=== PATIENT | male | born 1990 | race Caucasian/White ===

== ENCOUNTER 2016-08-10 00:28 | Inpatient (IN) | payer SELFPAY ==
[2016-08-10 01:20] LABS: Hematocrit 46 % (42-52); Hemoglobin 15.6 g/dl (14.0-18.0); Mean Corpuscular HGB Conc 34 g/dl (31-36); Mean Corpuscular Hemoglobin 30 pg (27-31); Mean Corpuscular Volume 90 fL (80-94); Mean Platelet Volume 8 um3 (7.4-10.4); Red Blood Count 5.15 10^6/ul (4.0-5.4); Red Cell Distribution Width 14 % (10.5-15); White Blood Count 6.6 10^3/ul (3.5-10.8)
--- NOTE | 2016-08-10 01:21 | ED ---
Von Hermos[place] Benjamin, scribed for Bacilio Fung MD on 08/10/16 at 0106 . Psychiatric Complaint - HPI Summary HPI Summary: 26yo male c/o SI tonight. Pt reports he had plans to jump off the bridge tonight after some problems with his girlfriend. Pt had SI multiple times previously and states that he has been seen for SI multiple times. Denies HI. - History Of Current Complaint Chief Complaint: EDMentalHealth Time Seen by Provider: 08/10/16 00:36 Hx Obtained From: Patient Onset/Duration: Sudden Onset, Lasting Hours, Still Present Timing: Constant Severity Initially: Mild Severity Currently: Mild Character: Depressed Aggravating Factor(s): Recent Stress Alleviating Factor(s): Nothing Associated Signs And Symptoms: Positive: Negative - Allergies/Home Medications Allergies/Adverse Reactions: Allergies Allergy/AdvReac Type Severity Reaction Status Date / Time No Known Allergies Allergy Verified 08/10/16 00:39 PMH/Surg Hx/FS Hx/Imm Hx Psychiatric History: Reports: Hx Suicide Attempt Infectious Disease History: No Infectious Disease History: Denies: Traveled Outside the [place] in Last 30 Days - Family History Known Family History: Negative: Cardiac Disease, Hypertension - Social History Lives: Alone Alcohol Use: None Substance Use Type: Reports: None Smoking Status (MU): Light Every Day Tobacco Smoker Review of Systems Constitutional: Negative Eyes: Negative ENT: Negative Cardiovascular: Negative Respiratory: Negative Gastrointestinal: Negative Genitourinary: Negative Musculoskeletal: Negative Skin: Negative Neurological: Negative Positive: Depressed, Other - SI All Other Systems Reviewed And Are Negative: Yes Physical Exam Triage Information Reviewed: Yes Vital Signs On Initial Exam: Initial Vitals Temp Pulse Resp BP Pulse Ox 99.6 F 82 18 138/89 98 08/10/16 00:33 08/10/16 00:33 08/10/16 00:33 08/10/16 00:33 08/10/16 00:33 Vital Signs Reviewed: Yes Appearance: Positive: Well-Appearing, No Pain Distress Skin: Positive: Warm Head/Face: Positive: Normal Head/Face Inspection Eyes: Positive: YOLANDE ENT: Positive: Hearing grossly normal Neck: Positive: Supple Respiratory/Lung Sounds: Positive: Breath Sounds Present Cardiovascular: Positive: RRR Abdomen Description: Positive: Nontender, Soft Bowel Sounds: Positive: Present Musculoskeletal: Positive: Strength/ROM Intact Neurological: Positive: Sensory/Motor Intact, Alert, Oriented to Person Place, Time Psychiatric: Positive: Affect/Mood Appropriate Diagnostics - Vital Signs Vital Signs Temp Pulse Resp BP Pulse Ox 08/10/16 00:33 99.6 F 82 18 138/89 98 - Laboratory Lab Results: Lab Results 08/10/16 Range/Units 01:11 WBC 6.6 (3.5-10.8) 10^3/ul RBC 5.15 (4.0-5.4) 10^6/ul Hgb 15.6 (14.0-18.0) g/dl Hct 46 (42-52) % MCV 90 (80-94) fL MCH 30 (27-31) pg MCHC 34 (31-36) g/dl RDW 14 (10.5-15) % Plt Count 139 L (150-450) 10^3/ul MPV 8 (7.4-10.4) um3 Neut % (Auto) 77.5 (38-83) % Lymph % (Auto) 15.6 L (25-47) % Meagher % (Auto) 6.0 (1-9) % Eos % (Auto) 0.4 (0-6) % Baso % (Auto) 0.5 (0-2) % Absolute Neuts (auto) 5.1 (1.5-7.7) 10^3/ul Absolute Lymphs (auto) 1.0 (1.0-4.8) 10^3/ul Absolute Monos (auto) 0.4 (0-0.8) 10^3/ul Absolute Eos (auto) 0 (0-0.6) 10^3/ul Absolute Basos (auto) 0 (0-0.2) 10^3/ul Absolute Nucleated RBC 0.01 10^3/ul Nucleated RBC % 0.1 Result Diagrams: 08/10/16 01:11 08/10/16 01:11 Lab Statement: Any lab studies that have been ordered have been reviewed, and results considered in the medical decision making process. Course/Dx - Differential Dx/Clinical Impression Provider Diagnosis: Suicidal ideations - Physician Notifications Instructed by Provider To: Admit As Inpatient Discharge - Discharge Plan Condition: Fair Disposition: ADMITTED TO [facility] documentation as recorded by the Von bautista Benjamin accurately reflects the service I personally performed and the decisions made by , Bacilio Fung MD.
[2016-08-10 01:28] LABS: Urine Bacteria Absent (Absent); Urine Bilirubin Negative (Negative); Urine Glucose Negative (Negative); Urine Nitrite Negative (Negative)
[2016-08-10 01:37] LABS: Benzodiazepine Urine Screen None Detected (None Detect)
[2016-08-10 01:38] LABS: ALT 34 U/L (7-52); AST 28 U/L (13-39); Acetaminophen < 15 mcg/mL; Albumin 4.7 g/dL (3.2-5.2); Alcohol < 10 mg/dL (<10); Alkaline Phosphatase 80 U/L (34-104); Anion Gap 6 mmol/L (2-11); BUN/Creatinine Ratio 11.6 (8-20); Blood Urea Nitrogen 11 mg/dL (6-24); CO2 Carbon Dioxide 29 mmol/L (22-32); Calcium 9.6 mg/dL (8.6-10.3); Chloride 102 mmol/L (101-111); EGFR African American 122.3 (>60); EGFR Non-African American 95.1 (>60); Globulin 2.6 g/dL (2-4); Glucose 105 mg/dL (70-100); Potassium 4.1 mmol/L (3.5-5.0); Salicylate < 2.50 mg/dL (<30); Sodium 137 mmol/L (133-145); Total Protein 7.3 g/dL (6.4-8.9)
[2016-08-10 01:48] LABS: TSH (Thyroid Stimulating Horm) 1.54 mcIU/mL (0.34-5.60)
[2016-08-10] MEDS ORDERED: Mouth Piece, Nicotine* 1 EACH CARTRIDGE INH SCH (05:35)
[2016-08-10] MEDS ORDERED: Al Hydrox/Mg Hydrox/Simet LIQ* 30 ML UDC PO PRN (05:35)
[2016-08-10] MEDS ORDERED: Nicotine Inhaler* 10 MG AMP INH PRN (05:35)
[2016-08-10] MEDS ORDERED: Nicotine GUM* 2 MG PO PRN (05:35)
[2016-08-10] MEDS: Acetaminophen TAB* 325 MG PO PRN (05:45)
[2016-08-10] MEDS: Vitamin THERAPEUTIC TAB PO SCH (08:58)
[2016-08-10] MEDS: Sertraline* 50 MG TAB PO SCH (09:26)
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
[2016-08-10] MEDS: Divalproex ER TAB(*) 500 MG PO SCH (20:08)
[2016-08-11] MEDS: Acetaminophen TAB* 325 MG PO PRN ×4 (06:06→23:30)
[2016-08-11] MEDS: Vitamin THERAPEUTIC TAB PO SCH (08:23)
[2016-08-11] MEDS: Sertraline* 50 MG TAB PO SCH (08:23)
--- NOTE | 2016-08-11 10:18 | PN ---
Subjective - Subjective Service Type: 95008 Hosp care 15 min low complexity Subjective: Michele agrees he feels a little better, but affirms he still needs to be in the hospital and still has some levels of "thoughts" (he refers to suicidal thoughts.) He denied problems restarting medication. I followed up his comments to nursing about elbow pain (he said it's mild, associated with a deformity pursuant to trauma and surgery many years ago). He is at a loss as to where to go from here, magan's mom's residence is not an option. He was surprised to hear that shelters are places where sometimes there are some tough characters. Objective - Appearance Appearance: Thin Framed Hygiene: Normal Grooming: Well Kept - Behavior Psychomotor Activities: Normal - Attitude and Relatedness Attitude and Relatedness: Superficially Cooperative Eye Contact: Good - Speech Quality: Unpressured Latencies: Normal Quantity: Terse - Mood Patient's Decription of Mood: "Okay" - Affect Observed Affect: Non-labile Affect Consistent with: Dysphoria - mild - Thought Process Patient's Thought Process: Coherent, Goal Directed, Impoverished Thought Content: No Passive Wish, No Suicidal Planning, No Homicidal Ideation, No Paranoid Ideation - Sensorium Experiencing Hallucinations: No, Sensorium is Clear - Level of Consciousness Level of Consciousness: Alert - Impulse Control Impulse Control: Intact - Insight and Judgement Insight and Judgement: Poor Assessment - Assessment Merits Inpatient Hospitalization: For Stabilization, To Initiate Treatment, For Ongoing Evaluation, Consolidate Improvements, For Discharge Planning Inpatient DSM-IV Dx: Mood disorder, not otherwise specified; learning disorder, rule out intellectual disability. Clinical Impression: 26-year-old male with a history of learning disorder, ADHD diagnosis, minor aggression, periodic suicidal ideation, possible intellectual deficits, and consideration for bipolar 2 disorder. He presented with symptoms of depression and suicidal ideation in the setting of displacement, homelessness, and interpersonal conflict with the background of his stopping his psychiatric medications 2 months ago (and saying that he felt better when he was on them). Stabilizing here. Safe on checks, free of active suicidal ideation (still has some level of suicidal rumination). Symptoms are overtly mild, pt. may have some secondary gain with hospital care due to homelessness. Medication management restarted Zoloft and Depakote. Plan - Plan Treatment Plan: Name: RAD CEJA Birthdate: 1990 [id number] Continued Medication Management: Start Medication Medications: Current Medications Acetaminophen (Tylenol Tab*) 650 mg PO Q4H PRN PRN Reason: PAIN or TEMP > 101 F Last Admin: 08/11/16 06:06 Dose: 650 mg Al Hydrox/Mg Hydrox/Simethicone (Maalox Plus*) 30 ml PO Q4H PRN PRN Reason: INDIGESTION Device (Nicotine Mouth Piece*) 1 each INH .[facility] Divalproex Sodium (Depakote Er Tab(*)) 500 mg PO BEDTIME [facility] Last Admin: 08/10/16 20:08 Dose: 500 mg Multivitamins (Theragran Tab*) 1 tab PO DAILY [facility] Last Admin: 08/11/16 08:23 Dose: 1 tab Nicotine (Nicotine Inhaler*) 10 mg INH Q2H PRN PRN Reason: CRAVING Nicotine Polacrilex (Nicotine Gum*) 2 mg PO Q2H PRN PRN Reason: CRAVING Sertraline HCl (Zoloft*) 50 mg PO DAILY [facility] Last Admin: 08/11/16 08:23 Dose: 50 mg - Discharge Plan Discharge Plan: Outpatient Follow Up
[2016-08-11] MEDS: Divalproex ER TAB(*) 500 MG PO SCH (20:11)
[2016-08-12] MEDS: Vitamin THERAPEUTIC TAB PO SCH (07:44)
[2016-08-12] MEDS: Acetaminophen TAB* 325 MG PO PRN ×2 (07:44→16:57)
[2016-08-12] MEDS: Sertraline* 50 MG TAB PO SCH (07:44)
--- NOTE | 2016-08-12 10:47 | PN ---
Subjective - Subjective Service Type: 57356 Hosp care 15 min low complexity Subjective: Michele says being on the unit is helping. He reports experience of "seeing a shadow" from time to time, and said it started after grandparent's . I normalized it for him and reassured him it is not suggestive of a major mental health problem. He was content with his regimen, asked for Ibuprofen for arm pain, and consented after I reviewed its profile and risks. Objective - Appearance Appearance: Healthy Appearing Hygiene: Normal Grooming: Well Kept - Behavior Psychomotor Activities: Normal - Attitude and Relatedness Attitude and Relatedness: Superficially Cooperative Eye Contact: Good - Speech Quality: Unpressured Latencies: Normal Quantity: Terse - Mood Patient's Decription of Mood: "Okay" - Affect Observed Affect: Non-labile Affect Consistent with: Euthymia - Thought Process Patient's Thought Process: Coherent, Goal Directed, Impoverished Thought Content: No Passive Wish, No Suicidal Planning, No Homicidal Ideation, No Paranoid Ideation - Sensorium Experiencing Hallucinations: No, Sensorium is Clear - Level of Consciousness Level of Consciousness: Alert - Impulse Control Impulse Control: Intact - Insight and Judgement Insight and Judgement: Fair Assessment - Assessment Merits Inpatient Hospitalization: To Initiate Treatment, For Ongoing Evaluation , Consolidate Improvements, For Discharge Planning, Pending Safe DC Plan Inpatient DSM-IV Dx: Mood disorder, not otherwise specified; learning disorder, rule out intellectual disability. Clinical Impression: 26-year-old male with a history of learning disorder, ADHD diagnosis, minor aggression, periodic suicidal ideation, possible intellectual deficits, and consideration for bipolar 2 disorder. He presented with symptoms of depression and suicidal ideation in the setting of displacement, homelessness, and interpersonal conflict with the background of his stopping his psychiatric medications 2 months ago (and saying that he felt better when he was on them). Stable in this setting. Aydin is safe on checks, free of active suicidal ideation (still has some level of suicidal rumination). Symptoms are overtly mild, he tends to emphasize them in contact with staff, but appears at ease and comfortable in non-clinical interactions. He may have some secondary gain with hospital care due to homelessness. Medication management restarted Zoloft and Depakote. Plan - Plan Treatment Plan: Name: AYDIN CEJA Birthdate: 1990 [id number] Continued Medication Management: Start Medication Medications: Current Medications Acetaminophen (Tylenol Tab*) 650 mg PO Q4H PRN PRN Reason: PAIN or TEMP > 101 F Last Admin: 08/12/16 07:44 Dose: 650 mg Al Hydrox/Mg Hydrox/Simethicone (Maalox Plus*) 30 ml PO Q4H PRN PRN Reason: INDIGESTION Device (Nicotine Mouth Piece*) 1 each INH .[facility] Last Admin: 08/11/16 19:11 Dose: 1 each Divalproex Sodium (Depakote Er Tab(*)) 500 mg PO BEDTIME [facility] Last Admin: 08/11/16 20:11 Dose: 500 mg Multivitamins (Theragran Tab*) 1 tab PO DAILY [facility] Last Admin: 08/12/16 07:44 Dose: 1 tab Nicotine (Nicotine Inhaler*) 10 mg INH Q2H PRN PRN Reason: CRAVING Nicotine Polacrilex (Nicotine Gum*) 2 mg PO Q2H PRN PRN Reason: CRAVING Sertraline HCl (Zoloft*) 50 mg PO DAILY [facility] Last Admin: 08/12/16 07:44 Dose: 50 mg - Discharge Plan Discharge Plan: Outpatient Follow Up
[2016-08-12] MEDS: Ibuprofen TAB* 400 MG PO PRN ×2 (13:03→21:40)
[2016-08-12] MEDS: Divalproex ER TAB(*) 500 MG PO SCH (20:17)
[2016-08-13] MEDS: Vitamin THERAPEUTIC TAB PO SCH (08:28)
[2016-08-13] MEDS: Sertraline* 50 MG TAB PO SCH (08:28)
[2016-08-13] MEDS: Ibuprofen TAB* 400 MG PO PRN (10:19)
--- NOTE | 2016-08-13 13:38 | PN ---
Subjective - Subjective Subjective: Today, Aydin reports right ear pain. He stated that in the past he had perforated his ear drug and has required antibiotic treatment for same. Attempted otoscopic examination, however, otoscope on unit was non-functional. Will request hospitalist consult for evaluation of ear pain. Aydin reports good sleep and fair appetite. Denies any improvement in mood, does admit to suicidal ideation which "comes and goes" but is future oriented. Objective - Appearance Dysmorphic Features: No Hygiene: Normal Grooming: Well Kept - Behavior Psychomotor Activities: Normal Exhibits Abnormal Movement: No - Attitude and Relatedness Attitude and Relatedness: Cooperative Eye Contact: Good - Speech Quality: Unpressured Latencies: Normal Quantity: Appropriate - Mood Patient's Decription of Mood: depressed - Affect Observed Affect: Depressed Affect Consistent with: Dysphoria - Thought Process Patient's Thought Process: Coherent Thought Content: Yes Passive Wish, No Suicidal Planning - denies, No Homicidal Ideation, No Paranoid Ideation - Sensorium Experiencing Hallucinations: No, Sensorium is Clear - Level of Consciousness Level of Consciousness: Alert Orientation: Yes Intact - Impulse Control Impulse Control: Intact - Insight and Judgement Insight and Judgement: Fair - Group Participation Particating in Group Activities: Yes Assessment - Assessment Inpatient DSM-IV Dx: Mood disorder, not otherwise specified; learning disorder, rule out intellectual disability. Clinical Impression: 26-year-old male with a history of learning disorder, ADHD diagnosis, minor aggression, periodic suicidal ideation, possible intellectual deficits, and consideration for bipolar 2 disorder. He presented with symptoms of depression and passive fleeting suicidal ideation. He remains on safety checks, but still has SI which "comes and goes." No new issues Plan - Plan Treatment Plan: Name: AYDIN CEJA Birthdate: 1990 [id number] Medications: Current Medications Acetaminophen (Tylenol Tab*) 650 mg PO Q4H PRN PRN Reason: PAIN or TEMP > 101 F Last Admin: 08/12/16 16:57 Dose: 650 mg Al Hydrox/Mg Hydrox/Simethicone (Maalox Plus*) 30 ml PO Q4H PRN PRN Reason: INDIGESTION Device (Nicotine Mouth Piece*) 1 each INH .[facility] Last Admin: 08/11/16 19:11 Dose: 1 each Divalproex Sodium (Depakote Er Tab(*)) 500 mg PO BEDTIME [facility] Last Admin: 08/12/16 20:17 Dose: 500 mg Ibuprofen (Motrin Tab*) 400 mg PO Q6H PRN PRN Reason: PAIN Last Admin: 08/13/16 10:19 Dose: 400 mg Multivitamins (Theragran Tab*) 1 tab PO DAILY [facility] Last Admin: 08/13/16 08:28 Dose: 1 tab Nicotine (Nicotine Inhaler*) 10 mg INH Q2H PRN PRN Reason: CRAVING Nicotine Polacrilex (Nicotine Gum*) 2 mg PO Q2H PRN PRN Reason: CRAVING Sertraline HCl (Zoloft*) 50 mg PO DAILY [facility] Last Admin: 08/13/16 08:28 Dose: 50 mg - Discharge Plan Additional Comments: Will consult hospitalist due to c/o right ear pain.
[2016-08-13] MEDS: Acetaminophen TAB* 325 MG PO PRN ×3 (13:43→23:25)
[2016-08-13] MEDS: Amoxicillin/Clavulanate TAB* 875 MG PO SCH ×2 (15:07→20:41)
--- NOTE | 2016-08-13 15:29 | CONS ---
CONSULTATION REPORT: DATE OF CONSULT: 08/13/16 PRIMARY CARE PROVIDER: None. ATTENDING PHYSICIAN WHILE IN THE HOSPITAL: Dr. Meaghan Penny (report being dictated by Gregory Chanel NP). REASON FOR MEDICAL CONSULTATION: Ear pain, right ear. REQUESTING PROVIDER FOR CONSULTATION: Chevy Sevilla NP. HISTORY OF PRESENT ILLNESS: I refer you to Dr. Ralph's H and P dictated on the for further details. In short, Mr. Yu is a 26-year-old male patient. He tells me he carries a history of depression, in addition to this also a history of bipolar disorder. He says that he also has a history of ADHD. He has had 2 prior psych hospitalizations for aggression and suicidal ideation. He says that he came in to the emergency department after he was expressing suicidal ideation to the police as there was stress over interpersonal conflicts and homelessness. While here, the patient reported that he was having some right ear pain and to me he states that he has been having this ear pain on the right side off and on for 6 months, but it has been worsening over the last couple days. He says that he has had some pain underneath his right jaw in the submandibular area, but no fevers or chills. He says it feels like there is discharge coming out of his ear. He does state that he has had a perforated eardrum to this ear in the past that required antibiotics previously and pain control. He expressed these concerns to Chevy Sevilla NP, in Psych and we were asked to come evaluate. He denied any fevers or chills. There is no chest pain or shortness of breath. He has not had any cough. He denies having any pain in any of his teeth, but there was concern because of the ear and we were asked to evaluate for consult. PAST MEDICAL HISTORY: Significant for: 1. Depression. 2. ADHD. SURGICAL HISTORY: 1. He has had an appendectomy. 2. He has had right upper extremity surgery. CURRENT MEDICATIONS: Include: 1. Tylenol 650 mg p.o. every 4 hours as needed. 2. Maalox 30 cc every 4 hours as needed. 3. Nicotine inhaler and nicotine gum. The inhaler is 10 mg inhaled every 2 hours as needed. The gum is 2 mg p.o. every 2 hours as needed. 4. Depakote 500 mg at bedtime. 5. Multivitamin 1 tablet daily. 6. Motrin 800 mg p.o. every 8 hours as needed. 7. Zoloft 50 mg daily. ALLERGIES TO MEDICATIONS: Include no known drug allergies. FAMILY HISTORY: Reviewed and noncontributory. SOCIAL HISTORY: Occasionally drinks alcohol. He was a pack a day smoker. He does not use any recreational drugs. He does not appoint a surrogate decision maker. REVIEW OF SYSTEMS: There is no documented fever. He denied having any significant weight change. There was no double vision. He denies having any no ear discharge currently, but he says he has a sensation like there is ear discharge. He denies having any nausea or vomiting. No dysuria. No frequency. Denied having any seizure. No loss of consciousness. No pruritus and no skin ulcerations. Review of 14 systems completed, all others negative. PHYSICAL EXAM: Reveals vital signs, blood pressure of 114/83, pulse 83, respirations 16, O2 sat 99%, and temperature 98.5. Generally, at this time, Mr. Yu is a 26-year-old male patient. He is sitting in the kitchen on the psychiatric unit. He does not appear to be in any acute distress. HEENT: Head is atraumatic and normocephalic. Eyes: EOMs are intact. Sclerae were anicteric and not pale. Throat: Oral mucosa appeared to be dry. No oropharyngeal erythema. On the right ear on exam, he had a tympanic membrane that did appear to be, particularly around the membrane, appeared to be erythematous. He did have a healing scar in the middle of the tympanic membrane as well as the canal itself there did not appear to be any erythema. He did have tenderness at the tragus and he had tenderness along the submandibular space and he had some adenopathy there as well. The left side, the TM appear to be grayish color. There is no erythema noted at this point and he had no lymphadenopathy on that side. Neck: Supple. Heart: Sounds S1, S2. Regular rate and rhythm. No murmurs, rubs, or gallops. Lungs: Clear to auscultation bilaterally. No wheezes, rales, or rhonchi. Abdomen was soft, flat , nontender. Extremities: No peripheral edema. Neurologically, he is awake, alert, and oriented x3. His skin was grossly intact. DIAGNOSTIC STUDIES/LAB DATA: Done on admission reveal WBC 6.6, RBC of 5.15, hemoglobin 15.6, hematocrit 46, platelet count 139. Sodium was 137, potassium 4.1, chloride 102, bicarb 29, BUN 11, creatinine 0.95, glucose of 105, calcium 9.6. Total bili 0.5, AST 28, ALT 34, alk phos 80. His albumin was 4.7. TSH was normal. Urine showed 1+ blood. He had a negative Utox. Old medical records were reviewed. ASSESSMENT AND PLAN: Mr. Yu is a 26-year-old male patient coming to the [facility] with complaints of suicidal ideation. Whilst there in the [facility], was complaining of right ear pain. We were asked to evaluate in consult. Recommendations at this point are: 1. Suicidal ideation: Defer the management to Psychiatry. 2. Right ear pain: I suspect he does have some otitis media here and I am going to go ahead and put him on Augmentin for a 7-day course. I would control pain with p.r.n. Motrin and Tylenol and will follow up in 24 to 48 hours to make sure that he is improving appropriately. 3. Bipolar disorder: I will defer to the primary team. 4. Depression: Defer to the primary team. 5. DVT prophylaxis: He is low risk. Encourage ambulation. 6. Fluids, electrolytes, and nutrition: He can have a regular diet. 7. Code status: Full code. TIME SPENT: Time spent on the consult was 60 minutes; greater than half the time was spent [id number] with the patient obtaining my history and physical, other half the time spent going over the plan of care with the patient and implementing plan of care. I did discuss the plan of care with my attending, Dr. Penny; she is in agreement. GREGORY CHANEL NP CC: Chevy Sevilla NP [id number]/[facility] #: [id number] MTDD
[2016-08-13] MEDS: Ibuprofen TAB* 800 MG PO PRN (17:32)
[2016-08-13] MEDS: Divalproex ER TAB(*) 500 MG PO SCH (20:41)
[2016-08-13] MEDS: diPHENhydraMINE PO* 50 MG PO PRN (22:19)
[2016-08-14] MEDS: Amoxicillin/Clavulanate TAB* 875 MG PO SCH ×2 (08:14→20:24)
[2016-08-14] MEDS: Sertraline* 50 MG TAB PO SCH (08:14)
[2016-08-14] MEDS: Vitamin THERAPEUTIC TAB PO SCH (08:14)
[2016-08-14] MEDS: Ibuprofen TAB* 800 MG PO PRN ×2 (08:14→20:25)
[2016-08-14] MEDS: Acetaminophen TAB* 325 MG PO PRN ×2 (10:51→16:58)
--- NOTE | 2016-08-14 15:31 | PN ---
Progress Note - Progress Note Note: I followed up on Aydin's complaint of R ear pain today. He states the pain is unchanged despite being started on Abx yesterday. He denies any drainage from the ear. He is worried about developing hearing loss because of the potential infection. Will add decongestant to see if that helps with the pain. I did not evaluate his TM today as there is likely little change in <24hr of Abx therapy. Will follow up tomorrow.
[2016-08-14] MEDS: Pseudoephedrine HCL ER TAB* 120 MG PO SCH (17:37)
[2016-08-14] MEDS: Divalproex ER TAB(*) 500 MG PO SCH (20:24)
[2016-08-15] MEDS: Vitamin THERAPEUTIC TAB PO SCH (07:42)
[2016-08-15] MEDS: Pseudoephedrine HCL ER TAB* 120 MG PO SCH ×2 (07:42→17:09)
[2016-08-15] MEDS: Amoxicillin/Clavulanate TAB* 875 MG PO SCH ×2 (07:42→21:01)
[2016-08-15] MEDS: Sertraline* 50 MG TAB PO SCH (07:42)
[2016-08-15] MEDS: Ibuprofen TAB* 800 MG PO PRN ×2 (10:04→19:15)
--- NOTE | 2016-08-15 12:03 | PN ---
Subjective - Subjective Service Type: 09870 Hosp care 15 min low complexity Subjective: Aydin continues to complain of ear pain, depressed mood and suicidal thoughts. He says he is thinking of by self-strangulation. He says he will tell us if he has intent to act on this plan here. He denies any psychosis or thoughts to harm others. Objective - Appearance Appearance: Healthy Appearing Dysmorphic Features: No Hygiene: Normal Grooming: Well Kept - Behavior Psychomotor Activities: Normal Exhibits Abnormal Movement: No - Attitude and Relatedness Attitude and Relatedness: Cooperative Eye Contact: Good - Speech Quality: Unpressured Latencies: Normal Quantity: Appropriate - Mood Patient's Decription of Mood: "Depressed" - Affect Observed Affect: Fair Affect Consistent with: Euthymia - Thought Process Patient's Thought Process: Coherent, Goal Directed Thought Content: Yes Passive Wish, Yes Suicidal Planning, No Homicidal Ideation, No Paranoid Ideation - Sensorium Experiencing Hallucinations: No, Sensorium is Clear Type of Hallucinations: Visual: No, Auditory: No, Command: No - Level of Consciousness Level of Consciousness: Alert Orientation: Yes Intact, Yes Orientated to Time, Yes Orientated to Place, Yes Orientated to Person - Impulse Control Impulse Control: Intact - Insight and Judgement Insight and Judgement: Poor - Group Participation Particating in Group Activities: Yes - Medication Management Medication Management Adherence: Yes Assessment - Assessment Merits Inpatient Hospitalization: For Immediate Safety, For Stabilization, For Ongoing Evaluation, Consolidate Improvements, For Discharge Planning Inpatient DSM-IV Dx: Mood disorder, not otherwise specified; learning disorder, rule out intellectual disability. Clinical Impression: Aydin Ceja is a 26-year-old male with a history of learning disorder, ADHD diagnosis, minor aggression, periodic suicidal ideation, possible intellectual deficits, and consideration for bipolar 2 disorder. He presented with symptoms of depression and suicidal ideation in the setting of displacement, homelessness , and interpersonal conflict. Medication management restarted Zoloft and low dose Depakote. Housing a hurst issue for discharge. He continues to report depressed mood, waxing/waning SI, and ear pain, for which hospitalist consult in progress, with 7 day course Augmentin for otitis media - Dr Donovan will see him again today in followup. Plan - Plan Treatment Plan: Name: AYDIN CEJA Birthdate: 1990 [id number] Continue current treatment plan. Medications: Current Medications Acetaminophen (Tylenol Tab*) 650 mg PO Q4H PRN PRN Reason: PAIN or TEMP > 101 F Last Admin: 08/14/16 16:58 Dose: 650 mg Al Hydrox/Mg Hydrox/Simethicone (Maalox Plus*) 30 ml PO Q4H PRN PRN Reason: INDIGESTION Amoxicillin/Clavulanate Potassium (Augmentin Tab*) 875 mg PO BID [facility] Last Admin: 08/15/16 07:42 Dose: 875 mg Device (Nicotine Mouth Piece*) 1 each INH [facility] Last Admin: 08/11/16 19:11 Dose: 1 each Diphenhydramine HCl (Benadryl Po*) 50 mg PO BEDTIME PRN PRN Reason: INSOMNIA Last Admin: 08/13/16 22:19 Dose: 50 mg Divalproex Sodium (Depakote Er Tab(*)) 500 mg PO BEDTIME [facility] Last Admin: 08/14/16 20:24 Dose: 500 mg Ibuprofen (Motrin Tab*) 800 mg PO Q8H PRN PRN Reason: PAIN Last Admin: 08/15/16 10:04 Dose: 800 mg Multivitamins (Theragran Tab*) 1 tab PO DAILY [facility] Last Admin: 08/15/16 07:42 Dose: 1 tab Nicotine (Nicotine Inhaler*) 10 mg INH Q2H PRN PRN Reason: CRAVING Nicotine Polacrilex (Nicotine Gum*) 2 mg PO Q2H PRN PRN Reason: CRAVING Pseudoephedrine HCl (Sudafed 12 Hour*) 120 mg PO Q12H [facility] Last Admin: 08/15/16 07:42 Dose: 120 mg Sertraline HCl (Zoloft*) 50 mg PO DAILY [facility] Last Admin: 08/15/16 07:42 Dose: 50 mg - Discharge Plan Discharge Plan: Outpatient Follow Up
[2016-08-15] MEDS: Acetaminophen TAB* 325 MG PO PRN ×2 (12:53→20:09)
--- NOTE | 2016-08-15 15:15 | PN ---
Subjective Date of Service: 08/15/16 Interval History: Pt is feeling about the same today as yesterday. He states that the decongestant may have helped some but he continues to have pain in the R ear. No other symptoms. Objective Active Medications: Acetaminophen (Tylenol Tab*) 650 mg PO Q4H PRN PRN Reason: PAIN or TEMP > 101 F Last Admin: 08/15/16 12:53 Dose: 650 mg Al Hydrox/Mg Hydrox/Simethicone (Maalox Plus*) 30 ml PO Q4H PRN PRN Reason: INDIGESTION Amoxicillin/Clavulanate Potassium (Augmentin Tab*) 875 mg PO BID [facility] Last Admin: 08/15/16 07:42 Dose: 875 mg Device (Nicotine Mouth Piece*) 1 each INH .[facility] Last Admin: 08/11/16 19:11 Dose: 1 each Diphenhydramine HCl (Benadryl Po*) 50 mg PO BEDTIME PRN PRN Reason: INSOMNIA Last Admin: 08/13/16 22:19 Dose: 50 mg Divalproex Sodium (Depakote Er Tab(*)) 500 mg PO BEDTIME [facility] Last Admin: 08/14/16 20:24 Dose: 500 mg Ibuprofen (Motrin Tab*) 800 mg PO Q8H PRN PRN Reason: PAIN Last Admin: 08/15/16 10:04 Dose: 800 mg Multivitamins (Theragran Tab*) 1 tab PO DAILY [facility] Last Admin: 08/15/16 07:42 Dose: 1 tab Nicotine (Nicotine Inhaler*) 10 mg INH Q2H PRN PRN Reason: CRAVING Nicotine Polacrilex (Nicotine Gum*) 2 mg PO Q2H PRN PRN Reason: CRAVING Pseudoephedrine HCl (Sudafed 12 Hour*) 120 mg PO Q12H [facility] Last Admin: 08/15/16 07:42 Dose: 120 mg Sertraline HCl (Zoloft*) 50 mg PO DAILY [facility] Last Admin: 08/15/16 07:42 Dose: 50 mg Vital Signs 08/15/16 08/15/16 00:17 07:42 Temperature 99 F 98.2 F Pulse Rate 70 80 Respiratory 16 16 Rate Blood Pressure 128/75 109/74 (mmHg) O2 Sat by Pulse 100 98 Oximetry Oxygen Devices in Use Now: None Appearance: Young male sleeping in bed, awakened to voice, NAD Eyes: No Scleral Icterus Ears/Nose/Mouth/Throat: Mucous Membranes Moist, - - L TM clear without erythema , R TM without erythema but question linear tear in the TM Skin: No Rash or Ulcers Neurological: Alert and Oriented x 3 Result Diagrams: 08/10/16 01:11 08/10/16 01:11 Additional Lab and Data: Lab Results 08/10/16 Range/Units 01:11 WBC 6.6 (3.5-10.8) 10^3/ul RBC 5.15 (4.0-5.4) 10^6/ul Hgb 15.6 (14.0-18.0) g/dl Hct 46 (42-52) % MCV 90 (80-94) fL MCH 30 (27-31) pg MCHC 34 (31-36) g/dl RDW 14 (10.5-15) % Plt Count 139 L (150-450) 10^3/ul MPV 8 (7.4-10.4) um3 Neut % (Auto) 77.5 (38-83) % Lymph % (Auto) 15.6 L (25-47) % [place] % (Auto) 6.0 (1-9) % Eos % (Auto) 0.4 (0-6) % Baso % (Auto) 0.5 (0-2) % Absolute Neuts (auto) 5.1 (1.5-7.7) 10^3/ul Absolute Lymphs (auto) 1.0 (1.0-4.8) 10^3/ul Absolute Monos (auto) 0.4 (0-0.8) 10^3/ul Absolute Eos (auto) 0 (0-0.6) 10^3/ul Absolute Basos (auto) 0 (0-0.2) 10^3/ul Absolute Nucleated RBC 0.01 10^3/ul Nucleated RBC % 0.1 Assess/Plan/Problems-Billing Mr Yu is a 26 yo M admitted to the [facility] with suicidal ideation and depression. The hospitalist service was asked to see the patient for c/o ear pain. - Patient Problems (1) Otitis media Current Visit: Yes Status: Acute Code(s): H66.90 - OTITIS MEDIA, UNSPECIFIED , UNSPECIFIED EAR SNOMED Code(s): 03071443 Comment: On initial evaluation the patient was found to have a slightly erythematous TM with possible scar or perforation. Today there is no erythema. Will continue the course of augmentin for a total of 7 days. Will not follow up any longer as there is no further action to be taken for the ear pain. He can use the decongestant as needed. (2) Suicidal ideation Current Visit: Yes Status: Acute Priority: High Onset Date: 04/22/15 Code(s): R45.851 - SUICIDAL IDEATIONS SNOMED Code(s): 9592296 Comment: Management per psychiatry.
[2016-08-15] MEDS: Divalproex ER TAB(*) 500 MG PO SCH (20:09)
[2016-08-16] MEDS: diPHENhydraMINE PO* 50 MG PO PRN (00:06)
[2016-08-16] MEDS: Pseudoephedrine HCL ER TAB* 120 MG PO SCH (06:46)
[2016-08-16 07:59] VITALS: BP 112/69
[2016-08-16] MEDS: Sertraline* 50 MG TAB PO SCH (08:36)
[2016-08-16] MEDS: Vitamin THERAPEUTIC TAB PO SCH (08:36)
[2016-08-16] MEDS: Amoxicillin/Clavulanate TAB* 875 MG PO SCH (08:36)
[2016-08-16] MEDS: Ibuprofen TAB* 800 MG PO PRN (09:40)
--- NOTE | 2016-08-16 13:49 | DS ---
Subjective - Subjective Service Types: [id number] [facility] Day Mgmt simple under 30 min Discharge Date: 08/16/16 Subjective: Michele asked for release. He denied setbacks and affirmed he is safe. He denies any recent active thoughts of suicide among recent ruminations. Says coping is intact, he anticipates dealing with fpc placement adequately. We reviewed medications and aftercare plans. He again affirmed he wants to avoid his mother. He said he sees no obstacles to care or emergency help if needed again. Objective - Appearance Appearance: Thin Framed Hygiene: Normal Grooming: Well Kept - Behavior Psychomotor Activities: Normal - Attitude and Relatedness Attitude and Relatedness: Superficially Cooperative Eye Contact: Good - Speech Quality: Unpressured Latencies: Normal Quantity: Terse - Mood Patient's Decription of Mood: "Fine" - Affect Observed Affect: Non-labile Affect Consistent with: Euthymia - Thought Process Patient's Thought Process: Coherent, Goal Directed, Impoverished Thought Content: No Passive Wish, No Suicidal Planning, No Homicidal Ideation, No Paranoid Ideation - Sensorium Experiencing Hallucinations: No, Sensorium is Clear - Level of Consciousness Level of Consciousness: Alert - Impulse Control Impulse Control: Intact - Insight and Judgement Insight and Judgement: Fair Treatment Course & Assessment Clinical Course & Impression: 26-year-old male with a history of learning disorder, ADHD diagnosis, minor aggression, periodic suicidal ideation, possible intellectual deficits, and consideration for bipolar 2 disorder. He presented with symptoms of depression and suicidal ideation in the setting of displacement, homelessness, and interpersonal conflict with the background of his stopping his psychiatric medications 2 months ago (and saying that he felt better when he was on them). 08/16/16 Clear for release. Aydin has been consistently stable in this setting. He was safe on checks, free of active suicidal ideation (he continued with variable levels of passive suicidal rumination). Symptoms were overtly mild, and he tended to emphasize them in contact with staff, but appeared at ease and comfortable in non-clinical interactions. He may have had some secondary gain with hospital care due to adjusting to homelessness. Medication management restarted Zoloft and Depakote - level can be deferred due to low dose therapy. He was seen by hospitalist and diagnosed with Otitis Media - antibiotics were started and are ordered for an additional 4 days after discharge. Aydin is appropriate for outpatient care. Risk concern centered on suicidal ideation. Aydin has above average chronic risk based on his profile and history. Subacutely he is at risk level that is probably above his base line due to situational instability - and this will be ongoing as he intends to confront the stress of fpc living. Acute risk is assessed as low and acceptable for outpatient status - factors in this are his low symptom burden, benign behavior, and absence of acute impairment. Clear for Discharge: Adequate Clinical Respons, Acceptable Safety Profile, Low Utility of Inpt Care Inpatient DSM-IV Dx: Mood disorder, not otherwise specified; learning disorder, rule out intellectual disability. Discharge Planning - Discharge Planning Discharge Plan: Outpatient Follow Up Outpatient Program: [facility] Recommendations for Continuing Care: Medication Management, Psychotherapy Medications: Current Medications Amoxicillin/Clavulanate Potassium (Augmentin Tab*) 875 mg PO BID [facility] Last Admin: 08/16/16 08:36 Dose: 875 mg Divalproex Sodium (Depakote Er Tab(*)) 500 mg PO BEDTIME [facility] Last Admin: 08/15/16 20:09 Dose: 500 mg Nicotine (Nicotine Inhaler*) 10 mg INH Q2H PRN PRN Reason: CRAVING Sertraline HCl (Zoloft*) 50 mg PO DAILY [facility] Last Admin: 08/16/16 08:36 Dose: 50 mg Discharge Planning: Prescriptions provided for discharge [x] Yes [] No Follow up care details as per social work arrangements. Patient response to discharge plan: [x] eager for discharge [] agreeable with discharge plan [] ambivalent about discharge [] disagrees with discharge today
== END 2016-08-16 14:30 | disposition home or self-care (01) | DRG 885 ==
LOC: EDBD → ED 00:28 → MERGE 05:24 → BSU 05:24
PROVIDERS: ADMIT Internal Medicine; ATTEND Psychiatry & Neurology Psychiatry
DX: F39 Unspecified mood [affective] disorder (principal); R45.851 Suicidal ideations; Z91.128 Patient's intentional underdosing of medication regimen for other reason; F81.9 Developmental disorder of scholastic skills, unspecified; F90.9 Attention-deficit hyperactivity disorder, unspecified type; H66.90 Otitis media, unspecified, unspecified ear; F17.210 Nicotine dependence, cigarettes, uncomplicated
CPT/HCPCS: 36415; 80053; 80307; 80320; 80329; 81003; 81015; 84443; 85025; 99222; 99231; A9270-GY; G0480

== ENCOUNTER 2016-08-17 10:55 | Inpatient (IN) | payer MEDICAID, OTHER ==
[2016-08-17 11:33] LABS: Urine Bacteria Absent (Absent); Urine Bilirubin Negative (Negative); Urine Glucose Negative (Negative); Urine Nitrite Negative (Negative)
[2016-08-17 12:09] LABS: Benzodiazepine Urine Screen None Detected (None Detect)
[2016-08-17] MEDS ORDERED: Al Hydrox/Mg Hydrox/Simet LIQ* 30 ML UDC PO PRN (13:49)
--- NOTE | 2016-08-17 19:01 | ED ---
Gene Hermosillo Billy, scribed for Yariel Kyle MD on 08/17/16 at 1440 . Psychiatric Complaint - HPI Summary HPI Summary: This patient is a 26 year-old male with a history of depression coming to [facility] for a mental health evaluation. He admits to having suicidal ideations without a clear plan, simply stating, "I don't want to be alive." He was seen and evaluated yesterday and was discharged, but the "discharge plan failed." He reports that he has been unable to sleep. - History Of Current Complaint Chief Complaint: EDMentalHealth Time Seen by Provider: 08/17/16 11:19 Hx Obtained From: Patient Onset/Duration: Gradual Onset Timing: Constant Severity Initially: Moderate Severity Currently: Moderate Character: Depressed Aggravating Factor(s): Nothing Alleviating Factor(s): Nothing Associated Signs And Symptoms: Positive: Sleep Disturbance Related History: Positive For: Prior Psychiatric Issues Has Suicidal: Reports: Thoughts - Allergies/Home Medications Allergies/Adverse Reactions: Allergies Allergy/AdvReac Type Severity Reaction Status Date / Time Red Dye Allergy Unknown Verified 08/17/16 16:11 Reaction Details PMH/Surg Hx/FS Hx/Imm Hx Endocrine/Hematology History: Denies: Hx Diabetes, Hx Thyroid Disease Cardiovascular History: Denies: Hx Hypertension Respiratory History: Denies: Hx Asthma, Hx Chronic Obstructive Pulmonary Disease (COPD) GI History: Denies: Hx Ulcer Sensory History: Denies: Hx Contacts or Glasses, Hx Hearing Aid Opthamlomology History: Denies: Hx Contacts or Glasses Neurological History: Denies: Other Neuro Impairments/Disorders Psychiatric History: Reports: Hx Depression, Hx Inpatient Treatment, Hx Bipolar Disorder, Hx Suicide Attempt Denies: Hx Eating Disorder, Hx of Violent Episodes Against Others - Surgical History Surgery Procedure, Year, and Place: Pin and rene placement right forearm 9 years ago Hx Anesthesia Reactions: No Infectious Disease History: No Infectious Disease History: Denies: Hx Hepatitis, Hx Human Immunodeficiency Virus (HIV), History Other Infectious Disease, Traveled Outside the [place] in Last 30 Days - Family History Known Family History: Negative: Cardiac Disease, Hypertension - Social History Alcohol Use: None Alcohol Amount: 03/20/10 Substance Use Type: Reports: None Smoking Status (MU): Light Every Day Tobacco Smoker Type: Cigarettes Amount Used/How Often: 0.5-1ppd Length of Time of Smoking/Using Tobacco: Since 13 years old Have You Smoked in the Last Year: Yes Review of Systems All Other Systems Reviewed And Are Negative: Yes Physical Exam - Summary Physical Exam Summary: VITAL SIGNS: Reviewed. GENERAL: Patient is a well-developed and nourished male who is lying comfortable in the stretcher. Patient is not in any acute respiratory distress. HEAD AND FACE: No signs of trauma. No ecchymosis, hematomas or skull depressions. No sinus tenderness. EYES: PERRLA, EOMI x 2, No injected conjunctiva, no nystagmus. EARS: Hearing grossly intact. Ear canals and tympanic membranes are within normal limits. MOUTH: Oropharynx within normal limits. NECK: Supple, trachea is midline, no adenopathy, no JVD, no carotid bruit, no c- spine tenderness, neck with full ROM. CHEST: Symmetric, no tenderness at palpation LUNGS: Clear to auscultation bilaterally. No wheezing or crackles. CVS: Regular rate and rhythm, S1 and S2 present, no murmurs or gallops appreciated. ABDOMEN: Soft, non-tender. No signs of distention. No rebound no guarding, and no masses palpated. Bowel sounds are normal. EXTREMITIES: FROM in all major joints, no edema, no cyanosis or clubbing. NEURO: Alert and oriented x 3. No acute neurological deficits. Speech is normal and follows commands. SKIN: Dry and warm PSYCH: Depressed, quiet. Positive suicidal thoughts. No homicidal thoughts or plan. Triage Information Reviewed: Yes Vital Signs On Initial Exam: Initial Vitals Temp Pulse BP Pulse Ox 99.7 F 101 154/93 100 08/17/16 10:57 08/17/16 10:57 08/17/16 10:57 08/17/16 10:57 Vital Signs Reviewed: Yes - Daniel Coma Scale Coma Scale Total: 15 Diagnostics - Vital Signs Vital Signs Temp Pulse Resp BP Pulse Ox 08/17/16 13:38 98.3 F 87 16 137/96 97 08/17/16 11:15 99.4 F 89 16 149/89 100 08/17/16 10:57 99.7 F 101 154/93 100 - Laboratory Lab Results: Lab Results 08/17/16 08/17/16 Range/Units 11:10 11:10 Urine Color Yellow Urine Appearance Clear Urine pH 7.0 (5-9) Ur Specific [place] 1.012 (1.010-1.030) Urine Protein Negative (Negative) Urine Ketones Negative (Negative) Urine Blood 1+ H (Negative) Urine Nitrate Negative (Negative) Urine Bilirubin Negative (Negative) Urine Urobilinogen Negative (Negative) Ur Leukocyte Esterase Negative (Negative) Urine WBC (Auto) Absent (Absent) Urine RBC (Auto) 1+(3-5/hpf) H (Absent) Urine Bacteria Absent (Absent) Urine Glucose Negative (Negative) Urine Opiates Screen None detected (None Detect) Ur Barbiturates Screen None detected (None Detect) Ur Phencyclidine Scrn None detected (None Detect) Ur Amphetamines Screen None detected (None Detect) U Benzodiazepines Scrn None detected (None Detect) Urine Cocaine Screen None detected (None Detect) U Cannabinoids Screen None detected (None Detect) Lab Statement: Any lab studies that have been ordered have been reviewed, and results considered in the medical decision making process. Course/Dx - Course Assessment/Plan: This patient is a 26 year-old male with a history of depression coming to [facility] for a mental health evaluation. He admits to having suicidal ideations without a clear plan, simply stating, "I don't want to be alive." He was seen and evaluated yesterday and was discharged, but the "discharge plan failed." He reports that he has been unable to sleep. The patient was medically cleared for mental health evaluation. The patient was seen and evaluated by Dr. Fountain and he will be admitted to the psychiatric unit. - Differential Dx/Clinical Impression Differential Diagnosis/HQI/PQRI: Positive: Depression, Suicidal Ideation Provider Diagnosis: Suicidal ideation Discharge - Discharge Plan Condition: Stable Disposition: PSYCHIATRIC FACILITY-[facility] [place] The documentation as recorded by the Gene bautista Billy accurately reflects the service I personally performed and the decisions made by , Yariel Kyle MD.
[2016-08-17] MEDS: Amoxicillin/Clavulanate TAB* 875 MG PO SCH (20:36)
[2016-08-17] MEDS: Divalproex DR TAB(*) 500 MG PO SCH (20:36)
[2016-08-17] MEDS: Acetaminophen TAB* 325 MG PO PRN (20:38)
[2016-08-17] MEDS ORDERED: Nicotine Inhaler* 10 MG AMP INH PRN (23:00)
[2016-08-17] MEDS ORDERED: Mouth Piece, Nicotine* 1 EACH CARTRIDGE INH ONE (23:00)
[2016-08-17] MEDS ORDERED: diPHENhydraMINE PO* 50 MG PO PRN (23:52)
[2016-08-18 07:48] LABS: Hematocrit 50 % (42-52); Hemoglobin 16.9 g/dl (14.0-18.0); Mean Corpuscular HGB Conc 34 g/dl (31-36); Mean Corpuscular Hemoglobin 30 pg (27-31); Mean Corpuscular Volume 90 fL (80-94); Mean Platelet Volume 8 um3 (7.4-10.4); Red Blood Count 5.56 10^6/ul (4.0-5.4); Red Cell Distribution Width 14 % (10.5-15); White Blood Count 5.2 10^3/ul (3.5-10.8)
[2016-08-18] MEDS: Amoxicillin/Clavulanate TAB* 875 MG PO SCH ×2 (07:53→19:56)
[2016-08-18] MEDS: Sertraline* 50 MG TAB PO SCH (07:53)
[2016-08-18 08:03] LABS: ALT 40 U/L (7-52); AST 23 U/L (13-39); Albumin 4.4 g/dL (3.2-5.2); Alkaline Phosphatase 71 U/L (34-104); Anion Gap 4 mmol/L (2-11); BUN/Creatinine Ratio 9.3 (8-20); Blood Urea Nitrogen 10 mg/dL (6-24); CO2 Carbon Dioxide 34 mmol/L (22-32); Calcium 9.9 mg/dL (8.6-10.3); Chloride 99 mmol/L (101-111); EGFR African American 106.6 (>60); EGFR Non-African American 82.9 (>60); Globulin 2.5 g/dL (2-4); Glucose 96 mg/dL (70-100); Potassium 4.3 mmol/L (3.5-5.0); Sodium 137 mmol/L (133-145); Total Protein 6.9 g/dL (6.4-8.9)
[2016-08-18 08:26] LABS: Acetaminophen < 15 mcg/mL; Alcohol < 10 mg/dL (<10); Salicylate < 2.50 mg/dL (<30)
[2016-08-18 08:37] LABS: TSH (Thyroid Stimulating Horm) 1.47 mcIU/mL (0.34-5.60)
[2016-08-18] MEDS ORDERED: Vitamin THERAPEUTIC TAB PO SCH (09:00)
[2016-08-18] MEDS: Acetaminophen TAB* 325 MG PO PRN ×2 (09:26→19:54)
--- NOTE | 2016-08-18 11:13 | PN ---
MHU: Group Therapy Note - Service Type Service Type: 77479 Group Psychotherapy - Cognitive Behavioral Group Therapy ( CBT):Patient presented in CBT programming as disorganized and disruptive in discussion and needed repeated redirection to attend to presented materials.
--- NOTE | 2016-08-18 12:50 | HP ---
PSYCHIATRIC ADMISSION HISTORY AND PHYSICAL: DATE OF ADMISSION: 08/17/16 DATE OF DICTATION: 08/18/16 IDENTIFYING DATA: Aydin Yu is a 26-year-old, unemployed, undomiciled male with a history of prior psychiatric hospitalizations, aggression, suicidal ideation, learning disorder, intellectual disability or autism. He is readmitted to the psychiatric unit one day after his last psychiatric discharge after he came to the hospital emergency room again expressing suicidal thoughts. HISTORY OF PRESENT ILLNESS: This is an update to the history and physical I entered associated with Aydin's August 10 admission. Please see that report for details of his more distant history. Aydin reported difficulties after his discharge. He said that working with DSS did not result in him getting housing. He stayed in touch with the peer who was discharged on the same day from the hospital with him and the peer apparently paid for a hotel room. Aydin then went to [facility] and reported suicidal thoughts. He endorses having had thoughts of jumping off a bridge. He denies being close to a suicide attempt. He is bright in his demeanor, smiles spontaneously. He asked for stronger antidepressant medicine noting that the medicine has not taken effect yet. I advised him that it was going to take more time. He denied use of alcohol or drugs. He denied current suicidal plans. He is comfortable coming back to the psychiatric unit. He still believes that he should not be going home to live with his mother and wants assistance with some alternative. MENTAL STATUS EXAMINATION: Healthy appearing, late 20s, male, well- kempt in causal clothes. He has normal psychomotor activity. He is somewhat childlike in his relatedness, makes good eye contact. Speech is spontaneous and unpressured. Mood is described as "fine." Affect is stable and mildly dysphoric. Thought process is coherent if impoverished. Thought content, negative for suicidal, homicidal or paranoid ideation. Sensorium is clear. He is alert and oriented x3. Insight and judgment is fair to poor and impulse control is intact. REVIEW OF SYSTEMS: Reports some stomach upset and reports some chest pain that is prompted by deep inhalation. PHYSICAL EXAMINATION Deferred. No indication for new physical examination. VITAL SIGNS: Temperature is 98.3, blood pressure is 119/73, pulse 87, respiratory rate 16. ADMISSION LABORATORY STUDIES: CBC had 12.7% monocytes. Comprehensive panel had chloride of 99, carbon dioxide of 34. Urinalysis had 1+ blood, 1+ red blood cells on high power field. Toxicology screen is negative for Tylenol, alcohol or salicylates. Urine drug screen is negative. CLINICAL SUMMARY: Readmission to the psychiatric unit for a 26-year-old male with a history of intellectual deficits, minor aggression, periodic suicidal ideation. He is subacutely struggling with being homeless and is clearly unable to stand for himself without support. He is reluctant to go home to his mother. He develops reactive suicidal ideation under distress and with some apparent secondary gain towards hospitalization. He merits psychiatric hospitalization as he is unable to care for himself and he is at risk for suicide attempts. ADMISSION DIAGNOSES: 1. Adjustment disorder. 2. Depressive disorder, no otherwise specified. 3. Intellectual disability versus autistic spectrum disorder. TREATMENT PLAN: Admit to the psychiatric unit. Code status is full. Safety checks every 15-minute intervals. Initiate comprehensive group, milieu and individual psychotherapeutic support. Medication management to continue sertraline and Depakote trial. Additionally we will provide antibiotics for otitis media for the remainder of the indicated course of target symptoms of suicidal ideation, impaired coping, dysphoria. The patient's strengths are his help seeking behavior and his adequate baseline health. Discharge planning will involve coordination of appropriate aftercare. [id number]/[facility] #: [id number] KATE
[2016-08-18] MEDS: Divalproex DR TAB(*) 500 MG PO SCH (19:56)
[2016-08-19 08:09] VITALS: BP 104/70
[2016-08-19] MEDS: Sertraline* 50 MG TAB PO SCH (08:47)
--- NOTE | 2016-08-19 11:47 | PN ---
Subjective - Subjective Service Type: 85019 Hosp care 15 min low complexity Assessment - Assessment Merits Inpatient Hospitalization: For Ongoing Evaluation, For Discharge Planning , Pending Safe DC Plan Inpatient DSM-IV Dx: 1. Adjustment disorder. 2. Depressive disorder, no otherwise specified. 3. Intellectual disability versus autistic spectrum disorder. Clinical Impression: 26-year-old male with a history of intellectual deficits, minor aggression, periodic suicidal ideation. He is subacutely struggling with being homeless and is clearly unable to stand for himself without support. He is reluctant to go home to his mother. He develops reactive suicidal ideation under distress and with some apparent secondary gain towards hospitalization. Aydin is stable again in this setting. His suicidal ideation appears reactive under stress, when he can't meet his own needs. He is not having symptoms of a major mood episode. Medication management to continue sertraline and Depakote trial. The main issues is his homelessness and lack of supports. Plan - Plan Treatment Plan: Name: AYDIN CEJA Birthdate: 1990 [id number] Medications: Current Medications Acetaminophen (Tylenol Tab*) 650 mg PO Q4H PRN PRN Reason: for pain; or Temp >101 F Last Admin: 08/18/16 19:54 Dose: 650 mg Al Hydrox/Mg Hydrox/Simethicone (Maalox Plus*) 30 ml PO Q4H PRN PRN Reason: INDIGESTION Diphenhydramine HCl (Benadryl Po*) 50 mg PO BEDTIME PRN PRN Reason: INSOMNIA Divalproex Sodium (Depakote Dr Tab(*)) 500 mg PO BEDTIME [facility] Last Admin: 08/18/16 19:56 Dose: 500 mg Nicotine (Nicotine Inhaler*) 10 mg INH Q2H PRN PRN Reason: CRAVINGS Last Admin: 08/18/16 19:55 Dose: 10 mg Sertraline HCl (Zoloft*) 50 mg PO DAILY [facility] Last Admin: 08/19/16 08:47 Dose: 50 mg
--- NOTE | 2016-08-19 13:41 | DS ---
Subjective - Subjective Service Types: 15810 [facility] Day Mgmt simple under 30 min Discharge Date: 08/19/16 Subjective: Aydin denied any distress and asked for release. He said he was in touch with his dad and can stay with him, and feels it's a good solution. Denied any plans for self harm, or wishes. Is interested in continuing his regimen, and agrees to outpatient care. Objective - Appearance Appearance: Healthy Appearing Hygiene: Normal Grooming: Well Kept - Behavior Psychomotor Activities: Normal - Attitude and Relatedness Attitude and Relatedness: Cooperative Eye Contact: Good - Speech Quality: Unpressured Latencies: Normal Quantity: Terse - Mood Patient's Decription of Mood: "Fine" - Affect Observed Affect: Non-labile Affect Consistent with: Euthymia - Thought Process Patient's Thought Process: Coherent, Goal Directed, Impoverished Thought Content: No Passive Wish, No Suicidal Planning, No Homicidal Ideation, No Paranoid Ideation - Sensorium Experiencing Hallucinations: No, Sensorium is Clear - Level of Consciousness Level of Consciousness: Alert - Impulse Control Impulse Control: Intact - Insight and Judgement Insight and Judgement: Poor Treatment Course & Assessment Clinical Course & Impression: 26-year-old male with a history of intellectual deficits, minor aggression, periodic suicidal ideation. He is subacutely struggling with being homeless and is clearly unable to stand for himself without support. He was readmitted to the psychiatric unit one day after his last discharge, after housing was not available through [facility] and he couldn't arrange alternatives on his own. He is reluctant to go home to his mother. He developed reactive suicidal ideation under distress and with some apparent secondary gain towards hospitalization. 08/19/16 Clear for release. Aydin was stable again in this setting. His suicidal ideation appears reactive under stress, when he can't meet his own needs. He is not having symptoms of a major mood episode. He is not actively suicidal. Medication management continues sertraline and Depakote trial. The main issues is his homelessness and lack of supports. He now has an appropriate plan to return to live with his dad, and capably requests release. Risk concern centered on suicidal ideation. Aydin has above average chronic risk based on his profile and history. Subacutely he is at risk level that is probably above his base line due to situational instability - and this could be ongoing as he is in transition, returning to live with his dad. Acute risk is assessed as low and acceptable for outpatient status - factors in this are his low symptom burden, benign behavior, and absence of acute impairment. Clear for Discharge: Adequate Clinical Respons, Acceptable Safety Profile, Low Utility of Inpt Care Discharge Planning - Discharge Planning Discharge Plan: Outpatient Follow Up - [facility] Recommendations for Continuing Care: Medication Management, Psychotherapy Medications: Current Medications Divalproex Sodium (Depakote Dr Tab(*)) 500 mg PO BEDTIME [facility] Last Admin: 08/18/16 19:56 Dose: 500 mg Nicotine (Nicotine Inhaler*) 10 mg INH Q2H PRN PRN Reason: CRAVINGS Last Admin: 08/18/16 19:55 Dose: 10 mg Sertraline HCl (Zoloft*) 50 mg PO DAILY [facility] Last Admin: 08/19/16 08:47 Dose: 50 mg Discharge Planning: Prescriptions provided for discharge [x] Yes [] No Follow up care details as per social work arrangements. Patient response to discharge plan: [x] eager for discharge [] agreeable with discharge plan [] ambivalent about discharge [] disagrees with discharge today
== END 2016-08-19 15:45 | disposition home or self-care (01) | DRG 755 ==
LOC: EDBD → ED 10:55 → BSU 13:49
PROVIDERS: ADMIT Psychiatry & Neurology Psychiatry; ATTEND Psychiatry & Neurology Psychiatry
PROC: GZHZZZZ Group Psychotherapy (ICD-10-PCS; principal; 2016-08-18)
DX: F43.20 Adjustment disorder, unspecified (principal); F79 Unspecified intellectual disabilities; F31.9 Bipolar disorder, unspecified; F17.210 Nicotine dependence, cigarettes, uncomplicated; Z59.0 Homelessness; Z56.0 Unemployment, unspecified; Z91.5 Personal history of self-harm
CPT/HCPCS: 36415; 80053; 80307; 80320; 80329; 81003; 81015; 84443; 85025; 90853; 99222; 99238; A9270-GY; G0480

== ENCOUNTER 2018-11-28 21:24 | Emergency (ER) | payer SELFPAY ==
[2018-11-28 21:49] LABS: ABS Basophils 0.1 10^3/ul (0-0.2); ABS Eosinophils 0.3 10^3/ul (0-0.6); ABS Lymphocytes 1.6 10^3/ul (1.0-4.8); ABS Monocytes 0.4 10^3/ul (0-0.8); ABS Neutrophils 3.2 10^3/ul (1.5-7.7); Eosinophil % 5.3 %; Hematocrit 47 % (42-52); Hemoglobin 16.1 g/dL (14.0-18.0); Lymphocyte % 28.7 %; Mean Corpuscular HGB Conc 34 g/dL (31-36); Mean Corpuscular Hemoglobin 31 pg (27-31); Mean Corpuscular Volume 91 fL (80-94); Mean Platelet Volume 7.9 fL (7.4-10.4); Nucleated Red Blood Cells % 0.2; Platelet Count 178 10^3/uL (150-450); Red Blood Count 5.22 10^6 /uL (4.18-5.48); Red Cell Distribution Width 15 % (10-15); White Blood Count 5.6 10^3/uL (3.5-10.8)
[2018-11-28 22:04] LABS: ALT 42 U/L (7-52); AST 22 U/L (13-39); Albumin 4.6 g/dL (3.2-5.2); Albumin/Globulin Ratio 1.8 (1-3); Alkaline Phosphatase 80 U/L (34-104); Anion Gap 11 mmol/L (2-11); BUN/Creatinine Ratio 12.5 (8-20); Blood Urea Nitrogen 13 mg/dL (6-24); CO2 Carbon Dioxide 24 mmol/L (22-32); Calcium 9.4 mg/dL (8.6-10.3); Chloride 103 mmol/L (101-111); EGFR African American 102.2 (>60); EGFR Non-African American 84.4 (>60); Globulin 2.5 g/dL (2-4); Glucose 136 mg/dL (70-100); Potassium 3.8 mmol/L (3.5-5.0); Sodium 138 mmol/L (135-145); Total Protein 7.1 g/dL (6.4-8.9)
[2018-11-28 22:39] LABS: Acetaminophen < 15 mcg/mL; Alcohol < 10 mg/dL (<10); Salicylate < 2.50 mg/dL (<30)
[2018-11-28 22:44] LABS: Urine Appearance Clear; Urine Bacteria Absent (Absent); Urine Bilirubin Negative (Negative); Urine Blood 1+ (Negative); Urine Color Yellow; Urine Glucose Negative (Negative); Urine Ketones Negative (Negative); Urine Nitrite Negative (Negative); Urine Protein Negative (Negative); Urine Red Blood Cell Trace(0-2/hpf) (Absent); Urine Specific Gravity 1.013 (1.010-1.030); Urine Urobilinogen Negative (Negative); Urine White Blood Cell Trace(0-5/hpf) (Absent)
[2018-11-28 22:50] LABS: Urine Benzodiazepine Screen None Detected (None Detect); Urine Opiates Screen None Detected (None Detect)
[2018-11-28 22:52] LABS: TSH (Thyroid Stimulating Horm) 2.03 mcIU/mL (0.34-5.60)
--- NOTE | 2018-11-29 00:55 | ED ---
Psychiatric Complaint - HPI Summary HPI Summary: This patient is a 28 year old M presenting to [facility] with a chief complaint of SI since few hours prior to arrival. Patient states he was [facility] for [facility]. Patient states he did not hurt himself tonight and instead came here. Patient states that he has loss of appetite. Patient reports PMHx of depression and bipolar disorder. Patient also reports EtOH use occasionally. PSHx of appendectomy and Septoplasty noted. Patient denies tobacco use and any additional PMHx. The patient rates pain 0/10 in severity per life cycle assessment analyst. Symptoms aggravated by non-medication compliance. Symptoms alleviated by nothing. - History Of Current Complaint Chief Complaint: EDSuicidal Time Seen by Provider: 11/28/18 21:33 Hx Obtained From: Patient Onset/Duration: Lasting Hours Timing: Constant Character: Depressed Aggravating Factor(s): Medication Non-compliance Alleviating Factor(s): Nothing Associated Signs And Symptoms: Positive: Appetite Change Related History: Positive For: Prior Psychiatric Issues - [facility] Has Suicidal: Reports: Thoughts Has Homicidal: Denies: Thoughts, With A Plan, Demonstrates Gesture, Has Prior Attempt(s) - Allergies/Home Medications Allergies/Adverse Reactions: Allergies Allergy/AdvReac Type Severity Reaction Status Date / Time red dye Allergy Unknown Verified 11/28/18 21:27 Reaction Details Home Medications: Home Medications NK [No Home Medications Reported] 11/28/18 [History Confirmed 11/28/18] PMH/Surg Hx/FS Hx/Imm Hx Endocrine/Hematology History: Denies: Hx Diabetes, Hx Thyroid Disease Cardiovascular History: Denies: Hx Hypertension Respiratory History: Denies: Hx Asthma, Hx Chronic Obstructive Pulmonary Disease (COPD) GI History: Denies: Hx Ulcer Sensory History: Denies: Hx Contacts or Glasses, Hx Hearing Aid Opthamlomology History: Denies: Hx Contacts or Glasses Neurological History: Denies: Other Neuro Impairments/Disorders Psychiatric History: Reports: Hx Anxiety, Hx Depression, Hx Inpatient Treatment , Hx Community Mental Health Tx, Hx Bipolar Disorder, Hx Suicide Attempt Denies: Hx Eating Disorder, Hx of Violent Episodes Against Others, Hx Substance Abuse - Surgical History Surgical History: Yes Surgery Procedure, Year, and Place: right arm surgery. devaited septum. appendix Hx Anesthesia Reactions: No Infectious Disease History: No Infectious Disease History: Denies: Hx Hepatitis, Hx Human Immunodeficiency Virus (HIV), History Other Infectious Disease, Traveled Outside the [place] in Last 30 Days - Family History Known Family History: Negative: Cardiac Disease, Hypertension, Diabetes Family History: Pt denies any family medical history. - Social History Alcohol Use: Weekly Alcohol Amount: 03/20/10 Hx Substance Use: Yes Substance Use Type: Reports: Marijuana Substance Use Comment - Amount & Last Used: occasionally Hx Tobacco Use: Yes Smoking Status (MU): Heavy Every Day Tobacco Smoker Type: Cigarettes Amount Used/How Often: 0.5-1ppd Length of Time of Smoking/Using Tobacco: Since 13 years old Have You Smoked in the Last Year: Yes Review of Systems Negative: Fever Positive: Other - decreased appetite Positive: Depressed - with SI All Other Systems Reviewed And Are Negative: Yes Physical Exam - Summary Physical Exam Summary: Constitutional: Well-developed, Well-nourished, Alert. (-) Distressed Skin: Warm, Dry HENT: Normocephalic; Atraumatic Eyes: Conjunctiva normal Neck: Musculoskeletal ROM normal neck. (-) JVD, (-) Stridor, (-) Nuchal rigidity Cardio: Rhythm regular, rate normal, Heart sounds normal; Intact distal pulses; Radial pulses are 2+ and symmetric. (-) Murmur Pulmonary/Chest wall: Effort normal. (-) Respiratory distress, (-) Wheezes, (-) Rales Abd: Soft, (-) tenderness, (-) Distension, (-) Guarding, (-) Rebound Musculoskeletal: (-) Edema Lymph: (-) Cervical adenopathy Neuro: Alert, Oriented x3 Psych: Positive SI Triage Information Reviewed: Yes Vital Signs On Initial Exam: Initial Vitals Temp Pulse Resp BP Pulse Ox 98.7 F 82 18 132/91 98 11/28/18 21:26 11/28/18 21:26 11/28/18 21:26 11/28/18 21:26 11/28/18 21:26 Vital Signs Reviewed: Yes Diagnostics - Vital Signs Vital Signs Temp Pulse Resp BP Pulse Ox 11/28/18 21:26 98.7 F 82 18 132/91 98 - Laboratory Lab Results: Lab Results 11/28/18 11/28/18 11/28/18 Range/Units 21:42 21:42 22:18 WBC 5.6 (3.5-10.8) 10^3/uL RBC 5.22 (4.18-5.48) 10^6 /uL Hgb 16.1 (14.0-18.0) g/dL Hct 47 (42-52) % MCV 91 (80-94) fL MCH 31 (27-31) pg MCHC 34 (31-36) g/dL RDW 15 (10-15) % Plt Count 178 (150-450) 10^3/uL MPV 7.9 (7.4-10.4) fL Neut % (Auto) 57.4 % Lymph % (Auto) 28.7 % [place] % (Auto) 7.2 % Eos % (Auto) 5.3 % Baso % (Auto) 1.4 % Absolute Neuts (auto) 3.2 (1.5-7.7) 10^3/ul Absolute Lymphs (auto) 1.6 (1.0-4.8) 10^3/ul Absolute Monos (auto) 0.4 (0-0.8) 10^3/ul Absolute Eos (auto) 0.3 (0-0.6) 10^3/ul Absolute Basos (auto) 0.1 (0-0.2) 10^3/ul Absolute Nucleated RBC 0.0 10^3/ul Nucleated RBC % 0.2 Sodium 138 (135-145) mmol/L Potassium 3.8 (3.5-5.0) mmol/L Chloride 103 (101-111) mmol/L Carbon Dioxide 24 (22-32) mmol/L Anion Gap 11 (2-11) mmol/L BUN 13 (6-24) mg/dL Creatinine 1.04 (0.67-1.17) mg/dL Est GFR ( Amer) 102.2 (>60) Est GFR (Non-Af Amer) 84.4 (>60) BUN/Creatinine Ratio 12.5 (8-20) Glucose 136 H (70-100) mg/dL Calcium 9.4 (8.6-10.3) mg/dL Total Bilirubin 0.40 (0.2-1.0) mg/dL AST 22 (13-39) U/L ALT 42 (7-52) U/L Alkaline Phosphatase 80 (34-104) U/L Total Protein 7.1 (6.4-8.9) g/dL Albumin 4.6 (3.2-5.2) g/dL Globulin 2.5 (2-4) g/dL Albumin/Globulin Ratio 1.8 (1-3) TSH 2.03 (0.34-5.60) mcIU/mL Urine Color Yellow Urine Appearance Clear Urine pH 5.0 (5-9) Ur Specific [place] 1.013 (1.010-1.030) Urine Protein Negative (Negative) Urine Ketones Negative (Negative) Urine Blood 1+ A (Negative) Urine Nitrate Negative (Negative) Urine Bilirubin Negative (Negative) Urine Urobilinogen Negative (Negative) Ur Leukocyte Esterase Negative (Negative) Urine WBC (Auto) Trace(0-5/hpf) (Absent) Urine RBC (Auto) Trace(0-2/hpf) (Absent) Urine Bacteria Absent (Absent) Urine Glucose Negative (Negative) Salicylates < 2.50 (<30) mg/dL Urine Opiates Screen (None Detect) Acetaminophen < 15 mcg/mL Ur Barbiturates Screen (None Detect) Ur Phencyclidine Scrn (None Detect) Ur Amphetamines Screen (None Detect) U Benzodiazepines Scrn (None Detect) Urine Cocaine Screen (None Detect) U Cannabinoids Screen (None Detect) Serum Alcohol < 10 (<10) mg/dL 11/28/18 Range/Units 22:18 WBC (3.5-10.8) 10^3/uL RBC (4.18-5.48) 10^6 /uL Hgb (14.0-18.0) g/dL Hct (42-52) % MCV (80-94) fL MCH (27-31) pg MCHC (31-36) g/dL RDW (10-15) % Plt Count (150-450) 10^3/uL MPV (7.4-10.4) fL Neut % (Auto) % Lymph % (Auto) % [place] % (Auto) % Eos % (Auto) % Baso % (Auto) % Absolute Neuts (auto) (1.5-7.7) 10^3/ul Absolute Lymphs (auto) (1.0-4.8) 10^3/ul Absolute Monos (auto) (0-0.8) 10^3/ul Absolute Eos (auto) (0-0.6) 10^3/ul Absolute Basos (auto) (0-0.2) 10^3/ul Absolute Nucleated RBC 10^3/ul Nucleated RBC % Sodium (135-145) mmol/L Potassium (3.5-5.0) mmol/L Chloride (101-111) mmol/L Carbon Dioxide (22-32) mmol/L Anion Gap (2-11) mmol/L BUN (6-24) mg/dL Creatinine (0.67-1.17) mg/dL Est GFR ( Amer) (>60) Est GFR (Non-Af Amer) (>60) BUN/Creatinine Ratio (8-20) Glucose (70-100) mg/dL Calcium (8.6-10.3) mg/dL Total Bilirubin (0.2-1.0) mg/dL AST (13-39) U/L ALT (7-52) U/L Alkaline Phosphatase (34-104) U/L Total Protein (6.4-8.9) g/dL Albumin (3.2-5.2) g/dL Globulin (2-4) g/dL Albumin/Globulin Ratio (1-3) TSH (0.34-5.60) mcIU/mL Urine Color Urine Appearance Urine pH (5-9) Ur Specific [place] (1.010-1.030) Urine Protein (Negative) Urine Ketones (Negative) Urine Blood (Negative) Urine Nitrate (Negative) Urine Bilirubin (Negative) Urine Urobilinogen (Negative) Ur Leukocyte Esterase (Negative) Urine WBC (Auto) (Absent) Urine RBC (Auto) (Absent) Urine Bacteria (Absent) Urine Glucose (Negative) Salicylates (<30) mg/dL Urine Opiates Screen None detected (None Detect) Acetaminophen mcg/mL Ur Barbiturates Screen None detected (None Detect) Ur Phencyclidine Scrn None detected (None Detect) Ur Amphetamines Screen None detected (None Detect) U Benzodiazepines Scrn None detected (None Detect) Urine Cocaine Screen None detected (None Detect) U Cannabinoids Screen None detected (None Detect) Serum Alcohol (<10) mg/dL Result Diagrams: 11/28/18 21:42 11/28/18 21:42 Lab Statement: Any lab studies that have been ordered have been reviewed, and results considered in the medical decision making process. - EKG 0422 Cardiac Rate: Bradycardia - 54 bpm EKG Rhythm: Sinus Bradycardia Summary of EKG Findings: Sinus bradycardia at 54 bpm, otherwise unremarkable. Re-Evaluation - Re-Evaluation First Eval Re-Evaluation Time: 00:03 Change: Improved Comment: Patient is discharged home by Dr. Jacobsen. Course/Dx - Differential Dx/Clinical Impression Provider Diagnosis: Depression Discharge ED - Sign-Out/Discharge Documenting (check all that apply): Sign-Out Patient Signing out patient TO: Mandeep Blankenship - Discharge Plan Condition: Stable Referrals: No Primary Care Phys,NOPCP [Primary Care Provider] - - Billing Disposition and Condition Condition: STABLE - Attestation Statements Document Initiated by Scribe: Yes Documenting Scribe: Felicia Croft Provider For Whom Max is Documenting (Include Credential): Aldo Guerin MD Scribe Attestation: Felicia Hermosillo, scribed for Aldo Guerin MD on 11/29 at 0558. Scribe Documentation Reviewed: Yes Provider Attestation: The documentation as recorded by the scribe, Felicia Croft accurately reflects the service I personally performed and the decisions made by me, Aldo Guerin MD Status of Scribe Document: Viewed
--- NOTE | 2018-11-29 07:23 | ED ---
Progress - Progress Note Progress Note: The patient is a sign-out from Dr. Adlo Guerin MD, to Dr. Mandeep Blankenship MD, at change of shift at 0700 on 11/29/18, pending transfer to facility for mental health services. 1030 - pt is anticipated to be transferred to [facility] in [place] for further mental health treatment, pending physician consultation for official acceptance of the pt 1230 - I spoke with Dr. Green at [facility], pt is accepted for transfer - Consult/PCP Time Called: 22:00 Re-Evaluation - Re-Evaluation First Eval Re-Evaluation Time: 10:30 Comment: Pt will likely be transferred to [facility] in [place], pending doc-to- doc consultation for acceptance Course/Dx - Course Course Of Treatment: The patient is a sign-out from Dr. Aldo Guerin MD, to Dr. Mandeep Blankenship MD, at change of shift at 0700 on 11/29/18, pending transfer to facility for mental health services. He is accepted for transfer to [facility] in [place] by Dr. Green. Pt understands and agrees with plan. - Diagnoses Provider Diagnoses: Depression - Provider Notifications Discussed Care Of Patient With: Himanshu Green - [facility] psychiatric care Time Discussed With Above Provider: 12:30 Instructed by Provider To: Other - Dr. Green aware of pt's case and accepts for transfer. Discharge ED - Sign-Out/Discharge Documenting (check all that apply): Patient Departure - Patient will be transferred to [facility] in [place], accepted by Dr. Green., Receiving Sign-Out Receiving patient FROM: Aldo Guerin - Patient is a sign-out from Dr. Aldo Guerin MD, at change of shift 0700 on 11/29/18, pending transfer to facility for mental health services. Patient Received Moderate/Deep Sedation with Procedure: No - Discharge Plan Condition: Stable Disposition: PSYCHIATRIC FACILITY-OTHER Referrals: No Primary Care Phys,NOPCP [Primary Care Provider] - - Billing Disposition and Condition Condition: STABLE Disposition: Psychiatric Facility Other - Attestation Statements Document Initiated by Scribe: Yes Documenting Scribe: Sia Rodarte Provider For Whom Laurieibsilvia is Documenting (Include Credential): Dr. Mandeep Blankenship MD Scribe Attestation: I, laurie Santosibed for Dr. Mandeep Blankenship MD on 12/07/18 at 1151. Scribe Documentation Reviewed: Yes Provider Attestation: The documentation as recorded by the lily, Sia Rodarte accurately reflects the service I personally performed and the decisions made by me, Dr. Mandeep Blankenship MD Status of Scribe Document: Viewed
[2018-11-29 12:49] VITALS: BP 108/73
== END 2018-11-29 12:46 ==
LOC: ED 21:24
DX: F32.9 Major depressive disorder, single episode, unspecified (principal); F41.9 Anxiety disorder, unspecified; F17.210 Nicotine dependence, cigarettes, uncomplicated
CPT/HCPCS: 36415; 80053; 80307; 80320; 80329; 81003; 81015; 84443; 85025; 87086; 93005; 99285; G0480

== ENCOUNTER 2018-12-16 00:15 | Emergency (ER) | payer MEDICAID ==
[2018-12-16 00:55] LABS: Urine Appearance Clear; Urine Bacteria Absent (Absent); Urine Bilirubin Negative (Negative); Urine Blood 2+ (Negative); Urine Color Yellow; Urine Glucose Negative (Negative); Urine Ketones Negative (Negative); Urine Nitrite Negative (Negative); Urine Protein Negative (Negative); Urine Red Blood Cell 1+(3-5/hpf) (Absent); Urine Specific Gravity 1.016 (1.010-1.030); Urine Urobilinogen Negative (Negative); Urine White Blood Cell Trace(0-5/hpf) (Absent)
[2018-12-16 01:16] LABS: ALT 33 U/L (7-52); AST 23 U/L (13-39); Albumin 4.7 g/dL (3.2-5.2); Albumin/Globulin Ratio 1.9 (1-3); Alkaline Phosphatase 96 U/L (34-104); Anion Gap 7 mmol/L (2-11); BUN/Creatinine Ratio 13.9 (8-20); Blood Urea Nitrogen 15 mg/dL (6-24); CO2 Carbon Dioxide 31 mmol/L (22-32); Chloride 102 mmol/L (101-111); EGFR African American 97.8 (>60); EGFR Non-African American 80.8 (>60); Globulin 2.5 g/dL (2-4); Glucose 87 mg/dL (70-100); Potassium 3.9 mmol/L (3.5-5.0); Sodium 140 mmol/L (135-145); Total Protein 7.2 g/dL (6.4-8.9)
[2018-12-16 01:29] LABS: Urine Benzodiazepine Screen None Detected (None Detect); Urine Opiates Screen None Detected (None Detect)
[2018-12-16] MEDS ORDERED: Acetaminophen TAB* 325 MG PO ONE (01:38)
--- NOTE | 2018-12-16 01:47 | ED ---
Psychiatric Complaint - HPI Summary HPI Summary: This patient is a 28 year old M presenting to [facility] with a chief complaint of suicidal thoughts today, 12/15/18. Hx SI and bipolar d/o. Patient reports of right ear pain radiating to R neck for several days. Pt denies fevers, coughs, congestion, and any consumption of medications that he is not supposed to take. - History Of Current Complaint Chief Complaint: EDSuicidal Time Seen by Provider: 12/16/18 00:37 Hx Obtained From: Patient Onset/Duration: Lasting Hours, Still Present Timing: Constant Aggravating Factor(s): Nothing Alleviating Factor(s): Nothing Related History: Positive For: Prior Psychiatric Issues Has Suicidal: Reports: Thoughts - Allergies/Home Medications Allergies/Adverse Reactions: Allergies Allergy/AdvReac Type Severity Reaction Status Date / Time red dye Allergy Unknown Verified 11/28/18 21:27 Reaction Details PMH/Surg Hx/FS Hx/Imm Hx Endocrine/Hematology History: Denies: Hx Diabetes, Hx Thyroid Disease Cardiovascular History: Denies: Hx Hypertension Respiratory History: Denies: Hx Asthma, Hx Chronic Obstructive Pulmonary Disease (COPD) GI History: Denies: Hx Ulcer Sensory History: Denies: Hx Contacts or Glasses, Hx Hearing Aid Opthamlomology History: Denies: Hx Contacts or Glasses Neurological History: Denies: Other Neuro Impairments/Disorders Psychiatric History: Reports: Hx Anxiety, Hx Depression, Hx Inpatient Treatment , Hx Community Mental Health Tx, Hx Bipolar Disorder, Hx Suicide Attempt Denies: Hx Eating Disorder, Hx of Violent Episodes Against Others, Hx Substance Abuse - Surgical History Surgery Procedure, Year, and Place: right arm surgery. devaited septum. appendix Hx Anesthesia Reactions: No Infectious Disease History: No Infectious Disease History: Denies: Hx Hepatitis, Hx Human Immunodeficiency Virus (HIV), History Other Infectious Disease, Traveled Outside the [place] in Last 30 Days - Family History Known Family History: Positive: None Negative: Cardiac Disease, Hypertension, Diabetes Family History: Pt denies any family medical history. - Social History Alcohol Use: Weekly Alcohol Amount: 03/20/10 Hx Substance Use: Yes Substance Use Type: Reports: Marijuana Substance Use Comment - Amount & Last Used: occasionally Hx Tobacco Use: Yes Smoking Status (MU): Heavy Every Day Tobacco Smoker Type: Cigarettes Amount Used/How Often: 0.5-1ppd Length of Time of Smoking/Using Tobacco: Since 13 years old Have You Smoked in the Last Year: Yes Review of Systems Negative: Fever Positive: Other - ear pain that goes down the right side of neck, denies congestion Negative: Cough Positive: Other - SI All Other Systems Reviewed And Are Negative: Yes Physical Exam - Summary Physical Exam Summary: Constitutional: Well-developed, Well-nourished, Alert. (-) Distressed Skin: Warm, Dry HENT: Normocephalic; Atraumatic, R tympanic membrane colin and pearly Eyes: Conjunctiva normal Neck: Musculoskeletal ROM normal neck. (-) JVD, (-) Stridor, (-) Nuchal rigidity Cardio: Rhythm regular, rate normal, Heart sounds normal; Intact distal pulses; Radial pulses are 2+ and symmetric. (-) Murmur Pulmonary/Chest wall: Effort normal. (-) Respiratory distress, (-) Wheezes, (-) Rales Abd: Soft, (-) tenderness, (-) Distension, (-) Guarding, (-) Rebound Musculoskeletal: (-) Edema Lymph: (-) Cervical adenopathy Neuro: Alert, Oriented x3 Psych: + SI Triage Information Reviewed: Yes Vital Signs On Initial Exam: Initial Vitals Temp Pulse Resp BP Pulse Ox 98.4 F 123 18 129/100 96 12/16/18 00:18 12/16/18 00:18 12/16/18 00:18 12/16/18 00:18 12/16/18 00:18 Vital Signs Reviewed: Yes Diagnostics - Vital Signs Vital Signs Temp Pulse Resp BP Pulse Ox 12/16/18 00:18 98.4 F 123 18 129/100 96 - Laboratory Lab Results: Lab Results 12/16/18 12/16/18 12/16/18 Range/Units 00:39 00:39 00:54 Sodium 140 (135-145) mmol/L Potassium 3.9 (3.5-5.0) mmol/L Chloride 102 (101-111) mmol/L Carbon Dioxide 31 (22-32) mmol/L Anion Gap 7 (2-11) mmol/L BUN 15 (6-24) mg/dL Creatinine 1.08 (0.67-1.17) mg/dL Est GFR ( Amer) 97.8 (>60) Est GFR (Non-Af Amer) 80.8 (>60) BUN/Creatinine Ratio 13.9 (8-20) Glucose 87 (70-100) mg/dL Calcium 10.0 (8.6-10.3) mg/dL Total Bilirubin 0.40 (0.2-1.0) mg/dL AST 23 (13-39) U/L ALT 33 (7-52) U/L Alkaline Phosphatase 96 (34-104) U/L Total Protein 7.2 (6.4-8.9) g/dL Albumin 4.7 (3.2-5.2) g/dL Globulin 2.5 (2-4) g/dL Albumin/Globulin Ratio 1.9 (1-3) TSH Pending Urine Color Yellow Urine Appearance Clear Urine pH 6.0 (5-9) Ur Specific [place] 1.016 (1.010-1.030) Urine Protein Negative (Negative) Urine Ketones Negative (Negative) Urine Blood 2+ A (Negative) Urine Nitrate Negative (Negative) Urine Bilirubin Negative (Negative) Urine Urobilinogen Negative (Negative) Ur Leukocyte Esterase Negative (Negative) Urine WBC (Auto) Trace(0-5/hpf) (Absent) Urine RBC (Auto) 1+(3-5/hpf) A (Absent) Urine Bacteria Absent (Absent) Urine Glucose Negative (Negative) Salicylates Pending Urine Opiates Screen None detected (None Detect) Acetaminophen Pending Ur Barbiturates Screen None detected (None Detect) Ur Phencyclidine Scrn None detected (None Detect) Ur Amphetamines Screen None detected (None Detect) U Benzodiazepines Scrn None detected (None Detect) Urine Cocaine Screen None detected (None Detect) U Cannabinoids Screen None detected (None Detect) Serum Alcohol Pending Result Diagrams: 12/16/18 00:54 12/16/18 00:54 Lab Statement: Any lab studies that have been ordered have been reviewed, and results considered in the medical decision making process. Re-Evaluation - Re-Evaluation First Eval Re-Evaluation Time: 20:50 Comment: Update on plan of care Course/Dx - Course Course Of Treatment: 28-year-old male with a history of bipolar disorder with suicidal ideation. -Also reporting right ear pain, no evidence of otitis media on exam. Will have mental health team evaluate - Differential Dx/Clinical Impression Provider Diagnosis: Depression - Physician Notifications Discussed Care Of Patient With: Luiz Castrejon - Psychiatrist Time Discussed With Above Provider: 06:30 Instructed by Provider To: Other - recommends transfer to [facility] where he was recently discharged from. Discharge ED - Sign-Out/Discharge Documenting (check all that apply): Patient Departure - transfer Patient Received Moderate/Deep Sedation with Procedure: No - Discharge Plan Condition: Stable Disposition: PSYCHIATRIC FACILITY-OTHER - Billing Disposition and Condition Condition: STABLE Disposition: Psychiatric Facility Other - Attestation Statements Document Initiated by Scribe: Yes Documenting Scribe: Carole Mancera Provider For Whom Max is Documenting (Include Credential): Dr. Aldo Guerin MD Scribe Attestation: Carole Hermosillo, scribed for Dr. Aldo Guerin MD on 12/16/18 at 0700. Scribe Documentation Reviewed: Yes Provider Attestation: The documentation as recorded by the Carole bautista accurately reflects the service I personally performed and the decisions made by me, Dr. Aldo Guerin MD Status of Scribe Document: Viewed
[2018-12-16 02:02] LABS: Acetaminophen < 15 mcg/mL; Alcohol < 10 mg/dL (<10); Salicylate < 2.50 mg/dL (<30)
[2018-12-16 02:11] LABS: ABS Eosinophils 0.1 10^3/ul (0-0.6); ABS Lymphocytes 1.1 10^3/ul (1.0-4.8); ABS Monocytes 0.4 10^3/ul (0-0.8); ABS Neutrophils 5.8 10^3/ul (1.5-7.7); Eosinophil % 0.8 %; Hematocrit 46 % (42-52); Hemoglobin 15.7 g/dL (14.0-18.0); Lymphocyte % 15.6 %; Mean Corpuscular HGB Conc 34 g/dL (31-36); Mean Corpuscular Hemoglobin 31 pg (27-31); Mean Corpuscular Volume 91 fL (80-94); Mean Platelet Volume 8.4 fL (7.4-10.4); Platelet Count 215 10^3/uL (150-450); Red Blood Count 5.09 10^6 /uL (4.18-5.48); Red Cell Distribution Width 14 % (10-15); White Blood Count 7.4 10^3/uL (3.5-10.8)
[2018-12-16 02:17] LABS: TSH (Thyroid Stimulating Horm) 2.14 mcIU/mL (0.34-5.60)
--- NOTE | 2018-12-16 10:18 | PN ---
ED Psychiatric Progress Note Date of Service: 12/16/18 Subjective: This is a 28 year-old M who is pending admission to [facility] / transfer to another psychiatric facility / discharge to home / or being observed secondary to SI. Pt. examined at 1010 in room 20. He is resting comfortably watching TV. Objective: Vitals: Most recent vital signs documented below. General NAD. Laboratory: Current laboratory results documented below. Assessment: Depression. Plan: Pending transfer for admission. Vital Signs Temp Pulse Resp BP Pulse Ox 97.9 F 71 14 107/77 96 12/16/18 05:06 12/16/18 05:06 12/16/18 05:06 12/16/18 05:06 12/16/18 00:18 Lab Results - Entire Visit 12/16/18 12/16/18 12/16/18 00:54 00:54 00:39 WBC 7.4 RBC 5.09 Hgb 15.7 Hct 46 MCV 91 MCH 31 MCHC 34 RDW 14 Plt Count 215 MPV 8.4 Neut % (Auto) 78.5 Lymph % (Auto) 15.6 [place] % (Auto) 4.8 Eos % (Auto) 0.8 Baso % (Auto) 0.3 Absolute Neuts (auto) 5.8 Absolute Lymphs (auto) 1.1 Absolute Monos (auto) 0.4 Absolute Eos (auto) 0.1 Absolute Basos (auto) 0.0 Absolute Nucleated RBC 0.0 Nucleated RBC % 0.0 Sodium 140 Potassium 3.9 Chloride 102 Carbon Dioxide 31 Anion Gap 7 BUN 15 Creatinine 1.08 Est GFR ( Amer) 97.8 Est GFR (Non-Af Amer) 80.8 BUN/Creatinine Ratio 13.9 Glucose 87 Calcium 10.0 Total Bilirubin 0.40 AST 23 ALT 33 Alkaline Phosphatase 96 Total Protein 7.2 Albumin 4.7 Globulin 2.5 Albumin/Globulin Ratio 1.9 TSH 2.14 Urine Color Urine Appearance Urine pH Ur Specific [place] Urine Protein Urine Ketones Urine Blood Urine Nitrate Urine Bilirubin Urine Urobilinogen Ur Leukocyte Esterase Urine WBC (Auto) Urine RBC (Auto) Urine Bacteria Urine Glucose Salicylates < 2.50 Urine Opiates Screen None detected Acetaminophen < 15 Ur Barbiturates Screen None detected Ur Phencyclidine Scrn None detected Ur Amphetamines Screen None detected U Benzodiazepines Scrn None detected Urine Cocaine Screen None detected U Cannabinoids Screen None detected Serum Alcohol < 10 12/16/18 00:39 WBC RBC Hgb Hct MCV MCH MCHC RDW Plt Count MPV Neut % (Auto) Lymph % (Auto) [place] % (Auto) Eos % (Auto) Baso % (Auto) Absolute Neuts (auto) Absolute Lymphs (auto) Absolute Monos (auto) Absolute Eos (auto) Absolute Basos (auto) Absolute Nucleated RBC Nucleated RBC % Sodium Potassium Chloride Carbon Dioxide Anion Gap BUN Creatinine Est GFR ( Amer) Est GFR (Non-Af Amer) BUN/Creatinine Ratio Glucose Calcium Total Bilirubin AST ALT Alkaline Phosphatase Total Protein Albumin Globulin Albumin/Globulin Ratio TSH Urine Color Yellow Urine Appearance Clear Urine pH 6.0 Ur Specific [place] 1.016 Urine Protein Negative Urine Ketones Negative Urine Blood 2+ A Urine Nitrate Negative Urine Bilirubin Negative Urine Urobilinogen Negative Ur Leukocyte Esterase Negative Urine WBC (Auto) Trace(0-5/hpf) Urine RBC (Auto) 1+(3-5/hpf) A Urine Bacteria Absent Urine Glucose Negative Salicylates Urine Opiates Screen Acetaminophen Ur Barbiturates Screen Ur Phencyclidine Scrn Ur Amphetamines Screen U Benzodiazepines Scrn Urine Cocaine Screen U Cannabinoids Screen Serum Alcohol
[2018-12-16 16:42] VITALS: BP 110/64
--- NOTE | 2018-12-16 19:42 | ED ---
Psychiatric Complaint - HPI Summary HPI Summary: This patient is a 28 year old M presenting to [facility] with a chief complaint of suicidal thoughts today, 12/15/18. Hx SI and bipolar d/o. Patient reports of right ear pain radiating to R neck for several days. Pt denies fevers, coughs, congestion, and any consumption of medications that he is not supposed to take. - History Of Current Complaint Chief Complaint: EDSuicidal Time Seen by Provider: 12/16/18 00:37 Hx Obtained From: Patient Onset/Duration: Lasting Hours, Still Present Timing: Constant Aggravating Factor(s): Nothing Alleviating Factor(s): Nothing Related History: Positive For: Prior Psychiatric Issues Has Suicidal: Reports: Thoughts - Allergies/Home Medications Allergies/Adverse Reactions: Allergies Allergy/AdvReac Type Severity Reaction Status Date / Time red dye Allergy Unknown Verified 11/28/18 21:27 Reaction Details PMH/Surg Hx/FS Hx/Imm Hx Endocrine/Hematology History: Denies: Hx Diabetes, Hx Thyroid Disease Cardiovascular History: Denies: Hx Hypertension Respiratory History: Denies: Hx Asthma, Hx Chronic Obstructive Pulmonary Disease (COPD) GI History: Denies: Hx Ulcer Sensory History: Denies: Hx Contacts or Glasses, Hx Hearing Aid Opthamlomology History: Denies: Hx Contacts or Glasses Neurological History: Denies: Other Neuro Impairments/Disorders Psychiatric History: Reports: Hx Anxiety, Hx Depression, Hx Inpatient Treatment , Hx Community Mental Health Tx, Hx Bipolar Disorder, Hx Suicide Attempt Denies: Hx Eating Disorder, Hx of Violent Episodes Against Others, Hx Substance Abuse - Surgical History Surgery Procedure, Year, and Place: right arm surgery. devaited septum. appendix Hx Anesthesia Reactions: No Infectious Disease History: No Infectious Disease History: Denies: Hx Hepatitis, Hx Human Immunodeficiency Virus (HIV), History Other Infectious Disease, Traveled Outside the [place] in Last 30 Days - Family History Known Family History: Positive: None Negative: Cardiac Disease, Hypertension, Diabetes Family History: Pt denies any family medical history. - Social History Alcohol Use: Weekly Alcohol Amount: 03/20/10 Hx Substance Use: Yes Substance Use Type: Reports: Marijuana Substance Use Comment - Amount & Last Used: occasionally Hx Tobacco Use: Yes Smoking Status (MU): Heavy Every Day Tobacco Smoker Type: Cigarettes Amount Used/How Often: 0.5-1ppd Length of Time of Smoking/Using Tobacco: Since 13 years old Have You Smoked in the Last Year: Yes Review of Systems Negative: Fever Positive: Other - ear pain that goes down the right side of neck, denies congestion Negative: Cough Positive: Other - SI All Other Systems Reviewed And Are Negative: Yes Physical Exam - Summary Physical Exam Summary: Constitutional: Well-developed, Well-nourished, Alert. (-) Distressed Skin: Warm, Dry HENT: Normocephalic; Atraumatic, R tympanic membrane colin and pearly Eyes: Conjunctiva normal Neck: Musculoskeletal ROM normal neck. (-) JVD, (-) Stridor, (-) Nuchal rigidity Cardio: Rhythm regular, rate normal, Heart sounds normal; Intact distal pulses; Radial pulses are 2+ and symmetric. (-) Murmur Pulmonary/Chest wall: Effort normal. (-) Respiratory distress, (-) Wheezes, (-) Rales Abd: Soft, (-) tenderness, (-) Distension, (-) Guarding, (-) Rebound Musculoskeletal: (-) Edema Lymph: (-) Cervical adenopathy Neuro: Alert, Oriented x3 Psych: + SI Triage Information Reviewed: Yes Vital Signs On Initial Exam: Initial Vitals Temp Pulse Resp BP Pulse Ox 98.4 F 123 18 129/100 96 12/16/18 00:18 12/16/18 00:18 12/16/18 00:18 12/16/18 00:18 12/16/18 00:18 Vital Signs Reviewed: Yes Diagnostics - Vital Signs Vital Signs Temp Pulse Resp BP Pulse Ox 12/16/18 17:04 98.1 F 71 16 110/64 97 12/16/18 16:41 98.1 F 71 16 110/64 97 12/16/18 13:55 98.0 F 76 16 112/74 97 12/16/18 05:06 97.9 F 71 14 107/77 12/16/18 00:18 98.4 F 123 18 129/100 96 - Laboratory Lab Results: Lab Results 12/16/18 12/16/18 12/16/18 Range/Units 00:39 00:39 00:54 Sodium 140 (135-145) mmol/L Potassium 3.9 (3.5-5.0) mmol/L Chloride 102 (101-111) mmol/L Carbon Dioxide 31 (22-32) mmol/L Anion Gap 7 (2-11) mmol/L BUN 15 (6-24) mg/dL Creatinine 1.08 (0.67-1.17) mg/dL Est GFR ( Amer) 97.8 (>60) Est GFR (Non-Af Amer) 80.8 (>60) BUN/Creatinine Ratio 13.9 (8-20) Glucose 87 (70-100) mg/dL Calcium 10.0 (8.6-10.3) mg/dL Total Bilirubin 0.40 (0.2-1.0) mg/dL AST 23 (13-39) U/L ALT 33 (7-52) U/L Alkaline Phosphatase 96 (34-104) U/L Total Protein 7.2 (6.4-8.9) g/dL Albumin 4.7 (3.2-5.2) g/dL Globulin 2.5 (2-4) g/dL Albumin/Globulin Ratio 1.9 (1-3) TSH Pending Urine Color Yellow Urine Appearance Clear Urine pH 6.0 (5-9) Ur Specific [place] 1.016 (1.010-1.030) Urine Protein Negative (Negative) Urine Ketones Negative (Negative) Urine Blood 2+ A (Negative) Urine Nitrate Negative (Negative) Urine Bilirubin Negative (Negative) Urine Urobilinogen Negative (Negative) Ur Leukocyte Esterase Negative (Negative) Urine WBC (Auto) Trace(0-5/hpf) (Absent) Urine RBC (Auto) 1+(3-5/hpf) A (Absent) Urine Bacteria Absent (Absent) Urine Glucose Negative (Negative) Salicylates Pending Urine Opiates Screen None detected (None Detect) Acetaminophen Pending Ur Barbiturates Screen None detected (None Detect) Ur Phencyclidine Scrn None detected (None Detect) Ur Amphetamines Screen None detected (None Detect) U Benzodiazepines Scrn None detected (None Detect) Urine Cocaine Screen None detected (None Detect) U Cannabinoids Screen None detected (None Detect) Serum Alcohol Pending Result Diagrams: 12/16/18 00:54 12/16/18 00:54 Lab Statement: Any lab studies that have been ordered have been reviewed, and results considered in the medical decision making process. Re-Evaluation - Re-Evaluation First Eval Re-Evaluation Time: 20:50 Comment: Update on plan of care Course/Dx - Course Course Of Treatment: 28-year-old male with a history of bipolar disorder with suicidal ideation. -Also reporting right ear pain, no evidence of otitis media on exam. Will have mental health team evaluate Assessment/Plan: Mr. Yu was transferred per mental health after the mental health evaluation. He was in stable condition when he left. - Differential Dx/Clinical Impression Provider Diagnosis: Depression - Physician Notifications Time Discussed With Above Provider: 06:30 Instructed by Provider To: Other - recommends transfer to [facility] where he was recently discharged from. Discharge ED - Sign-Out/Discharge Documenting (check all that apply): Patient Departure Patient Received Moderate/Deep Sedation with Procedure: No - Discharge Plan Condition: Stable Disposition: PSYCHIATRIC FACILITY-OTHER Referrals: No Primary Care Phys,NOPCP [Primary Care Provider] - - Billing Disposition and Condition Condition: STABLE Disposition: Psychiatric Facility Other
== END 2018-12-16 17:04 ==
LOC: ED 00:15
DX: F32.9 Major depressive disorder, single episode, unspecified (principal); F41.9 Anxiety disorder, unspecified; F17.210 Nicotine dependence, cigarettes, uncomplicated
CPT/HCPCS: 36415; 80053; 80307; 80320; 80329; 81003; 81015; 84443; 85025; 87086; 93005; 99285; A9270-GY; G0480

== ENCOUNTER 2018-12-21 20:42 | Emergency (ER) | payer MEDICAID ==
[2018-12-21] MEDS ORDERED: Ketorolac INJ* 30 MG/ML 1 ML VIAL IV PUSH ONE (22:09)
--- NOTE | 2018-12-21 22:13 | ED ---
Throat Pain/Nasal Congestion - HPI Summary HPI Summary: 28-year-old male presents with right ear pain for the past week. He states that has been on antibiotics for a week and pain is getting worst. he is on amoxicillin. Pain is on the right side of his neck. Denies any neck stiffness. No headache. Denies any sinus congestion. No fevers. no sore throat or difficulty swallowing. No chest pain or shortness of breath. He has never had this symptoms before. Has a psych history. denies any drug use. - History of Current Complaint Chief Complaint: EDEarPain Time Seen by Provider: 12/21/18 20:51 - Allergies/Home Medications Allergies/Adverse Reactions: Allergies Allergy/AdvReac Type Severity Reaction Status Date / Time red dye Allergy Unknown Verified 12/21/18 20:45 Reaction Details PMH/Surg Hx/FS Hx/Imm Hx Endocrine/Hematology History: Denies: Hx Diabetes, Hx Thyroid Disease Cardiovascular History: Denies: Hx Hypertension Respiratory History: Denies: Hx Asthma, Hx Chronic Obstructive Pulmonary Disease (COPD) GI History: Denies: Hx Ulcer Sensory History: Denies: Hx Contacts or Glasses, Hx Hearing Aid Opthamlomology History: Denies: Hx Contacts or Glasses Neurological History: Denies: Other Neuro Impairments/Disorders Psychiatric History: Reports: Hx Anxiety, Hx Depression, Hx Inpatient Treatment , Hx Community Mental Health Tx, Hx Bipolar Disorder, Hx Suicide Attempt Denies: Hx Eating Disorder, Hx of Violent Episodes Against Others, Hx Substance Abuse - Surgical History Surgery Procedure, Year, and Place: right arm surgery. devaited septum. appendix Hx Anesthesia Reactions: No - Immunization History Date of Tetanus Vaccine: 2018 Date of Influenza Vaccine: 2019 Immunizations Up to Date: Yes Infectious Disease History: No Infectious Disease History: Denies: Hx Hepatitis, Hx Human Immunodeficiency Virus (HIV), History Other Infectious Disease, Traveled Outside the [place] in Last 30 Days - Family History Known Family History: Positive: None Negative: Cardiac Disease, Hypertension, Diabetes Family History: Pt denies any family medical history. - Social History Alcohol Use: Occasionally Alcohol Amount: 03/20/10 Hx Substance Use: Yes Substance Use Type: Reports: Marijuana Substance Use Comment - Amount & Last Used: occasionally Hx Tobacco Use: Yes Smoking Status (MU): Heavy Every Day Tobacco Smoker Type: Cigarettes Amount Used/How Often: 0.5-1ppd Length of Time of Smoking/Using Tobacco: Since 13 years old Have You Smoked in the Last Year: Yes Review of Systems Negative: Fever Positive: Ear Ache, Other - right side neck pain Negative: Chest Pain Negative: Shortness Of Breath All Other Systems Reviewed And Are Negative: Yes Physical Exam Triage Information Reviewed: Yes Vital Signs On Initial Exam: Initial Vitals Temp Pulse Resp BP Pulse Ox 99.7 F 116 16 143/99 98 12/21/18 20:43 12/21/18 20:43 12/21/18 20:43 12/21/18 20:43 12/21/18 20:43 Vital Signs Reviewed: Yes Appearance: Positive: Well-Appearing Skin: Positive: Warm, Dry Head/Face: Positive: Normal Head/Face Inspection Eyes: Positive: Normal, EOMI, YOLANDE, Conjunctiva Clear ENT: Positive: Pharynx normal, TMs normal Neck: Positive: Enlarged Nodes @ - cervical, Other: - tenderness right side of neck. Negative: Nuchal Rigidity Respiratory/Lung Sounds: Positive: Clear to Auscultation, Breath Sounds Present Cardiovascular: Positive: Normal, RRR Abdomen Description: Positive: Nontender, Soft Bowel Sounds: Positive: Present Musculoskeletal: Positive: Normal Neurological: Positive: Normal Psychiatric: Positive: Normal Procedures - Sedation Patient Received Moderate/Deep Sedation with Procedure: No Diagnostics - Vital Signs Vital Signs Temp Pulse Resp BP Pulse Ox 12/21/18 21:39 98.7 F 95 16 119/82 97 12/21/18 20:43 99.7 F 116 16 143/99 98 - Laboratory Result Diagrams: 12/21/18 22:16 12/21/18 22:16 Lab Statement: Any lab studies that have been ordered have been reviewed, and results considered in the medical decision making process. - CT neck CT Interpretation Completed By: Radiologist Summary of CT Findings: IMPRESSION: Normal post contrast neck CT. EENT Course/Dx - Course Course Of Treatment: 28-year-old male presents with right ear pain for the past week. He states that has been on antibiotics for a week and pain is getting worst. he is on amoxicillin. Pain is on the right side of his neck. Denies any neck stiffness. No headache. Denies any sinus congestion. No fevers. no sore throat or difficulty swallowing. No chest pain or shortness of breath. He has never had this symptoms before. Has a psych history. On exam tenderness over right side of neck. Some potential swelling felt to the area. Lymph nodes noted. as is currently on antibiotics will get CT as has some swelling to neck noted. wbc normal. CT shows no acute findings. will give lidocaine patch for pain. told est care with primary. patient understand and agrees with plan. - Differential Diagnoses Differential Diagnoses: Otitis Externa, Otitis Media, Other - mastoditis - Diagnoses Provider Diagnoses: Neck pain, Ear pain, right Discharge ED - Sign-Out/Discharge Documenting (check all that apply): Patient Departure - Discharge Plan Condition: Good Disposition: HOME Prescriptions: Lidocaine PATCH 5%* [Lidoderm 5% Patch*] 1 patch TRANSDERM DAILY #4 patch Patient Education Materials: Neck Pain (ED) Referrals: [facility] [place] [facility] [Outside] Additional Instructions: apply lidocaine patch to area leave on for 12 hours then remove for 12 hours before applying another Take Tylenol or ibuprofen every 6 hours for pain Establish care with primary to follow up Return to ED if develop any new or worsening symptoms - Billing Disposition and Condition Condition: GOOD Disposition: Home
[2018-12-21 22:26] LABS: ABS Eosinophils 0.1 10^3/ul (0-0.6); ABS Lymphocytes 1.2 10^3/ul (1.0-4.8); ABS Monocytes 0.5 10^3/ul (0-0.8); ABS Neutrophils 4.1 10^3/ul (1.5-7.7); Eosinophil % 1.5 %; Hematocrit 44 % (42-52); Hemoglobin 15.1 g/dL (14.0-18.0); Lymphocyte % 20.7 %; Mean Corpuscular HGB Conc 34 g/dL (31-36); Mean Corpuscular Hemoglobin 30 pg (27-31); Mean Corpuscular Volume 89 fL (80-94); Mean Platelet Volume 7.4 fL (7.4-10.4); Platelet Count 193 10^3/uL (150-450); Red Blood Count 4.98 10^6 /uL (4.18-5.48); Red Cell Distribution Width 14 % (10-15); White Blood Count 5.9 10^3/uL (3.5-10.8)
[2018-12-21 22:43] LABS: Albumin 4.5 g/dL (3.2-5.2); Albumin/Globulin Ratio 1.8 (1-3); BUN/Creatinine Ratio 17.2 (8-20); C Reactive Protein 3.59 mg/L (<8.01); Calcium 9.6 mg/dL (8.6-10.3); EGFR African American 108.1 (>60); EGFR Non-African American 89.4 (>60); Globulin 2.5 g/dL (2-4); Total Bilirubin 0.3 mg/dL (0.2-1.0)
[2018-12-21] MEDS ORDERED: Iohexol 300* (CONTRAST) 10 ML SDV IV ONE (22:52)
[2018-12-22] MEDS ORDERED: Lidocaine PATCH 5%* 1 PATCH TRANSDERM ONE (00:14)
[2018-12-22 00:34] VITALS: BP 105/76
[2018-12-22] MEDS ORDERED: Lidocaine Patch REMOVE* 1 NOTE MISC SCH (21:00)
== END 2018-12-22 00:30 | disposition home or self-care (01) ==
LOC: ED 20:42
DX: M54.2 Cervicalgia (principal); H92.01 Otalgia, right ear; F17.210 Nicotine dependence, cigarettes, uncomplicated
CPT/HCPCS: 36415; 70491; 80053; 85025; 86140; 96374; 99282; A9270-GY; J1885; Q9967

== ENCOUNTER 2019-01-08 00:34 | Inpatient (IN) | payer MEDICAID ==
[2019-01-08 01:09] LABS: Urine Appearance Clear; Urine Bilirubin Negative (Negative); Urine Blood Negative (Negative); Urine Color Yellow; Urine Glucose Negative (Negative); Urine Ketones Negative (Negative); Urine Nitrite Negative (Negative); Urine Protein Negative (Negative); Urine Specific Gravity 1.008 (1.010-1.030); Urine Urobilinogen Negative (Negative)
[2019-01-08 01:17] LABS: ABS Eosinophils 0.3 10^3/ul (0-0.6); ABS Lymphocytes 1.6 10^3/ul (1.0-4.8); ABS Monocytes 0.5 10^3/ul (0-0.8); ABS Neutrophils 3.4 10^3/ul (1.5-7.7); Eosinophil % 5.3 %; Hematocrit 43 % (42-52); Hemoglobin 14.8 g/dL (14.0-18.0); Lymphocyte % 27.9 %; Mean Corpuscular HGB Conc 34 g/dL (31-36); Mean Corpuscular Hemoglobin 30 pg (27-31); Mean Corpuscular Volume 89 fL (80-94); Mean Platelet Volume 7.8 fL (7.4-10.4); Nucleated Red Blood Cells % 0.2; Platelet Count 166 10^3/uL (150-450); Red Blood Count 4.88 10^6 /uL (4.18-5.48); Red Cell Distribution Width 14 % (10-15); White Blood Count 5.9 10^3/uL (3.5-10.8)
--- NOTE | 2019-01-08 01:22 | ED ---
Psychiatric Complaint - HPI Summary HPI Summary: Patient is a 28 y/o M presenting to [facility] with SI. He states that he has had SI all day today, 01/08/19. Patient reports that he has a plan of suicide, stating that he would either jump off of a bridge or stab himself. Patient notes that his grandmother, who he was close with, two years ago to this date, . Patient notes Hx of depression and bipolar disorder. He states that he is on medications for these conditions but does not remember which medications. Patient additionally claims that he has been drinking alcohol daily for the past few weeks. He states that he drank around 2 [employer] hard lemonades today. Patient smokes cigarettes and uses marijuana. He additionally notes that he has had a toothache for the past few weeks that he has been treating with ibuprofen. He has not taken any ibuprofen today. Home medications and allergies are reviewed. - History Of Current Complaint Chief Complaint: EDSuicidal Time Seen by Provider: 01/08/19 00:39 Hx Obtained From: Patient Onset/Duration: Lasting Hours, Still Present Timing: Days Character: Depressed Aggravating Factor(s): Other - Patient notes that his grandmother, who he was close with, two years ago to this date, 01/08/19. Has Suicidal: Reports: Thoughts, With A Plan - Allergies/Home Medications Allergies/Adverse Reactions: Allergies Allergy/AdvReac Type Severity Reaction Status Date / Time red dye Allergy Unknown Verified 01/08/19 00:38 Reaction Details PMH/Surg Hx/FS Hx/Imm Hx Endocrine/Hematology History: Denies: Hx Diabetes, Hx Thyroid Disease Cardiovascular History: Denies: Hx Hypertension Respiratory History: Denies: Hx Asthma, Hx Chronic Obstructive Pulmonary Disease (COPD) GI History: Denies: Hx Ulcer History: Denies: Hx Renal Disease Sensory History: Denies: Hx Contacts or Glasses, Hx Hearing Aid Opthamlomology History: Denies: Hx Contacts or Glasses Neurological History: Denies: Other Neuro Impairments/Disorders Psychiatric History: Reports: Hx Anxiety, Hx Depression, Hx Inpatient Treatment , Hx Community Mental Health Tx, Hx Bipolar Disorder, Hx Suicide Attempt Denies: Hx Eating Disorder, Hx of Violent Episodes Against Others, Hx Substance Abuse - Surgical History Surgery Procedure, Year, and Place: right arm surgery. devaited septum. appendix Hx Anesthesia Reactions: No - Immunization History Date of Tetanus Vaccine: 2019 Date of Influenza Vaccine: 2019 Infectious Disease History: No Infectious Disease History: Denies: Hx Hepatitis, Hx Human Immunodeficiency Virus (HIV), History Other Infectious Disease, Traveled Outside the [place] in Last 30 Days - Family History Known Family History: Negative: Cardiac Disease, Hypertension, Diabetes Family History: Pt denies any family medical history. - Social History Alcohol Use: Daily Alcohol Amount: 03/20/10 Hx Substance Use: Yes Substance Use Type: Reports: Marijuana Substance Use Comment - Amount & Last Used: occasionally Hx Tobacco Use: Yes Smoking Status (MU): Heavy Every Day Tobacco Smoker Type: Cigarettes Amount Used/How Often: 0.5-1ppd Length of Time of Smoking/Using Tobacco: Since 13 years old Have You Smoked in the Last Year: Yes Review of Systems Negative: Fever - on vitals, temp is 98.4 F Psychological: Other - positive - SI All Other Systems Reviewed And Are Negative: Yes Physical Exam - Summary Physical Exam Summary: General: Well-developed, Well-nourished male. No acute distress. HEENT: Normocephalic, Atraumatic. Eyes: Conjuctiva normal, PERRL. Ears: TMs within normal limits. Nares: (-) discharge, (-) erythema. Oropharynx: Clear, mucous membranes moist, (-) exudates. Neck: Soft, FROM, (-) lymphadenopathy, (-) thyromegaly, (-) JVD. Cardiovascular: Normal sinus rhythm, (-) murmur. Lungs: Clear to auscultation bilaterally (-) wheezes, (-) rales, (-) rhonchi. Abdomen: Soft, non-tender, non-distended, (-) organomegaly, normal bowel sounds. Back: (-) CVA tenderness Extremities: No edema. Skin: Warm, dry, (-) rash. Neuro: Alert and oriented x3, some slurring of words. Psychiatric: Patient is slow to respond. Triage Information Reviewed: Yes Vital Signs On Initial Exam: Initial Vitals Temp Pulse Resp BP Pulse Ox 98.4 F 89 15 145/93 96 01/08/19 00:36 01/08/19 00:36 01/08/19 00:36 01/08/19 00:36 01/08/19 00:36 Vital Signs Reviewed: Yes Procedures - Sedation Patient Received Moderate/Deep Sedation with Procedure: No Diagnostics - Vital Signs Vital Signs Temp Pulse Resp BP Pulse Ox 01/08/19 00:36 98.4 F 89 15 145/93 96 - Laboratory Result Diagrams: 01/08/19 01:11 01/08/19 01:11 Lab Statement: Any lab studies that have been ordered have been reviewed, and results considered in the medical decision making process. Course/Dx - Course Course Of Treatment: 28-year-old male with suicidal ideation. Patient had mental health examination. Hospitalization was deemed necessary. No beds currently active here. Transfer will be initiated. Patient signout changes shift. - Differential Dx/Clinical Impression Provider Diagnosis: Depressive disorder - Physician Notifications Discussed Care Of Patient With: Mihir Jacobsen Time Discussed With Above Provider: 03:10 Instructed by Provider To: Other - Patient's case was reviewed by Dr. Jacobsen. Patient will be a voluntary admit. However, as there are no available beds for patient in [facility] psych, patient is slated to be transferred to another psych facility. Discharge ED - Sign-Out/Discharge Documenting (check all that apply): Sign-Out Patient Signing out patient TO: Aldo Guerin - Discharge Plan Condition: Stable Referrals: No Primary Care Phys,NOPCP [Primary Care Provider] - - Billing Disposition and Condition Condition: STABLE - Attestation Statements Document Initiated by Max: Yes Documenting Scribe: DHEERAJ VELASQUEZ Provider For Whom Max is Documenting (Include Credential): LOUIE BLANCAS MD Scribe Attestation: DHEERAJ Hermosillo, scribed for LOUIE BLANCAS MD on 01/08/19 at 0555. Scribe Documentation Reviewed: Yes Provider Attestation: The documentation as recorded by the DHEERAJ bautista accurately reflects the service I personally performed and the decisions made by me, LOUIE BLANCAS MD Status of Scribe Document: Viewed
[2019-01-08 01:34] LABS: ALT 24 U/L (7-52); AST 18 U/L (13-39); Albumin 4.1 g/dL (3.2-5.2); Albumin/Globulin Ratio 1.8 (1-3); Alkaline Phosphatase 81 U/L (34-104); Anion Gap 6 mmol/L (2-11); BUN/Creatinine Ratio 12.6 (8-20); Blood Urea Nitrogen 13 mg/dL (6-24); CO2 Carbon Dioxide 31 mmol/L (22-32); Calcium 9.4 mg/dL (8.6-10.3); Chloride 101 mmol/L (101-111); EGFR African American 103.3 (>60); EGFR Non-African American 85.4 (>60); Globulin 2.3 g/dL (2-4); Glucose 95 mg/dL (70-100); Potassium 3.7 mmol/L (3.5-5.0); Sodium 138 mmol/L (135-145); Total Protein 6.4 g/dL (6.4-8.9)
[2019-01-08 01:35] LABS: Urine Benzodiazepine Screen None Detected (None Detect); Urine Opiates Screen None Detected (None Detect)
[2019-01-08 01:54] LABS: Acetaminophen < 15 mcg/mL; Alcohol < 10 mg/dL (<10); Salicylate < 2.50 mg/dL (<30)
--- NOTE | 2019-01-08 07:17 | ED ---
Progress - Progress Note Progress Note: Pt is a sign out from Dr. Sloane Strickland at 07:00 on 01/08/19 at shift change, pending MH disposition. At 08:58, EKG will be ordered and obtained. EKG at 09:57 reveals 74 BPM with normal sinus rhythm, no STEMI, nml intervals, nml axis, no acute changes. At 14:55, car hostler reports that pts case has been reviewed by Dr. Desouza who will voluntarily admit the pt to [facility] in overflow with a diagnosis of mood disorder. - Results/Orders Results/Orders: EKG at 09:57 reveals 74 BPM with normal sinus rhythm, no STEMI, nml intervals, nml axis, no acute changes. - Consult/PCP Time Called: 02:11 Course/Dx - Course Course Of Treatment: 28-year-old male with suicidal ideation. Patient had mental health examination. Hospitalization was deemed necessary. No beds currently active here. Transfer will be initiated. Patient signout changes shift. - Diagnoses Provider Diagnoses: Depressive disorder - Provider Notifications Time Discussed With Above Provider: 03:10 Instructed by Provider To: Other - Patient's case was reviewed by Dr. Jacobsen. Patient will be a voluntary admit. However, as there are no available beds for patient in [facility] psych, patient is slated to be transferred to another psych facility. Discharge ED - Sign-Out/Discharge Documenting (check all that apply): Patient Departure - Admit, Receiving Sign- Out Receiving patient FROM: Sloane Strickland - Discharge Plan Condition: Stable Disposition: PSYCHIATRIC FACILITY-[facility] Referrals: [facility] [Outside] - Billing Disposition and Condition Condition: STABLE Disposition: Psychiatric Facility [facility] - Attestation Statements Document Initiated by Scribe: Yes Documenting Scribe: Rosie Corcoran Provider For Whom Laurieibsilvia is Documenting (Include Credential): Aldo Guerin MD Scribe Attestation: I, Rosie Corcoran, scribed for Aldo Guerin MD on 01/08/19 at 1514. Scribe Documentation Reviewed: Yes Provider Attestation: The documentation as recorded by the Rosie bautista accurately reflects the service I personally performed and the decisions made by me, Aldo Guerin MD Status of Scribe Document: Viewed ED Psychiatric Progress Note Date of Service: 01/08/19 - At 12:59, pt is in no acute distress. Subjective: This is a 28 year-old M who is pending transfer to another psychiatric facility secondary to depression. Pt offers no complaints at this time. Pt is in no acute distress and sleeping. Objective: Vitals: Most recent vital signs documented below. General NAD, Alert and oriented x3. Heart: rrr at 81 bpm Lungs: CTA. Laboratory: Current laboratory results documented below. Assessment: 28 y/o M with depression pending transfer to a psychiatric facility. Plan: Pending psychiatric transfer will follow up daily. Vital Signs Temp Pulse Resp BP Pulse Ox 97.8 F 81 16 117/78 94 01/08/19 10:04 01/08/19 10:04 01/08/19 10:04 01/08/19 10:04 01/08/19 10:04 Lab Results - Entire Visit 01/08/19 01/08/19 01/08/19 01:11 01:11 00:50 WBC 5.9 RBC 4.88 Hgb 14.8 Hct 43 MCV 89 MCH 30 MCHC 34 RDW 14 Plt Count 166 MPV 7.8 Neut % (Auto) 58.1 Lymph % (Auto) 27.9 [place] % (Auto) 8.0 Eos % (Auto) 5.3 Baso % (Auto) 0.7 Absolute Neuts (auto) 3.4 Absolute Lymphs (auto) 1.6 Absolute Monos (auto) 0.5 Absolute Eos (auto) 0.3 Absolute Basos (auto) 0.0 Absolute Nucleated RBC 0.0 Nucleated RBC % 0.2 Sodium 138 Potassium 3.7 Chloride 101 Carbon Dioxide 31 Anion Gap 6 BUN 13 Creatinine 1.03 Est GFR ( Amer) 103.3 Est GFR (Non-Af Amer) 85.4 BUN/Creatinine Ratio 12.6 Glucose 95 Calcium 9.4 Total Bilirubin 0.40 AST 18 ALT 24 Alkaline Phosphatase 81 Total Protein 6.4 Albumin 4.1 Globulin 2.3 Albumin/Globulin Ratio 1.8 TSH 1.60 Urine Color Urine Appearance Urine pH Ur Specific [place] Urine Protein Urine Ketones Urine Blood Urine Nitrate Urine Bilirubin Urine Urobilinogen Ur Leukocyte Esterase Urine Glucose Salicylates < 2.50 Urine Opiates Screen None detected Acetaminophen < 15 Ur Barbiturates Screen None detected Ur Phencyclidine Scrn None detected Ur Amphetamines Screen None detected U Benzodiazepines Scrn None detected Urine Cocaine Screen None detected U Cannabinoids Screen None detected Serum Alcohol < 10 01/08/19 00:50 WBC RBC Hgb Hct MCV MCH MCHC RDW Plt Count MPV Neut % (Auto) Lymph % (Auto) [place] % (Auto) Eos % (Auto) Baso % (Auto) Absolute Neuts (auto) Absolute Lymphs (auto) Absolute Monos (auto) Absolute Eos (auto) Absolute Basos (auto) Absolute Nucleated RBC Nucleated RBC % Sodium Potassium Chloride Carbon Dioxide Anion Gap BUN Creatinine Est GFR ( Amer) Est GFR (Non-Af Amer) BUN/Creatinine Ratio Glucose Calcium Total Bilirubin AST ALT Alkaline Phosphatase Total Protein Albumin Globulin Albumin/Globulin Ratio TSH Urine Color Yellow Urine Appearance Clear Urine pH 7.0 Ur Specific [place] 1.008 L Urine Protein Negative Urine Ketones Negative Urine Blood Negative Urine Nitrate Negative Urine Bilirubin Negative Urine Urobilinogen Negative Ur Leukocyte Esterase Negative Urine Glucose Negative Salicylates Urine Opiates Screen Acetaminophen Ur Barbiturates Screen Ur Phencyclidine Scrn Ur Amphetamines Screen U Benzodiazepines Scrn Urine Cocaine Screen U Cannabinoids Screen Serum Alcohol
[2019-01-08] MEDS ORDERED: Al Hydrox/Mg Hydrox/Simet LIQ* 30 ML UDC PO PRN (15:00)
[2019-01-09 08:27] LABS: HDL Cholesterol 50.9 mg/dL
[2019-01-09] MEDS: Vitamin THERAPEUTIC TAB PO SCH (10:06)
[2019-01-09] MEDS: Acetaminophen TAB* 325 MG PO PRN ×3 (10:06→22:18)
[2019-01-09] MEDS: Nicotine* 4MG (FRUIT FLAVOR) GUM PO PRN ×4 (14:36→23:12)
[2019-01-09] MEDS: Divalproex DR TAB(*) 500 MG PO SCH ×2 (14:36→23:10)
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
[2019-01-09] MEDS: Nicotine PATCH 21 MG/24 HR* PATCH TRANSDERM SCH ×2 (18:00→23:46)
[2019-01-10] MEDS: Acetaminophen TAB* 325 MG PO PRN ×3 (04:32→21:05)
[2019-01-10] MEDS: Nicotine PATCH 21 MG/24 HR* PATCH TRANSDERM SCH (09:14)
[2019-01-10] MEDS: Divalproex DR TAB(*) 500 MG PO SCH ×2 (09:15→21:02)
[2019-01-10] MEDS: Vitamin THERAPEUTIC TAB PO SCH (09:16)
[2019-01-10] MEDS: Nicotine* 4MG (FRUIT FLAVOR) GUM PO PRN ×5 (09:16→21:06)
[2019-01-10] MEDS: Nicotine Patch Removal NOTE PATCH OFF SCH ×2 (09:17→21:04)
--- NOTE | 2019-01-10 18:07 | PN ---
Subjective - Subjective Date of Service: 01/10/19 Service Type: 12463 Hosp care 15 min low complexity Subjective: He wants to go home and feels well. He says that he was upset two days ago but has not been suicidal since he got to the hospital. He is back on Depakote and agrees to return to mental health and to resume treatment. 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 [employer] and says that two weeks ago he left his aunt's house "because she was too controlling" and became homeless, staying at the [facility] and placed there by DSS Objective - General Observations Appearance: Neat Appears Stated Age: Yes Stature: WNL Posture: WNL Eye Contact: Average Behavior/Activity: WNL Separation from Parent/Guardian: Unremarkable/Age Appropriate - Interaction Observations Attitude Towards Examiner: Cooperative Stated Mood: Euthymic Affect: Restricted Speech Pattern/Tone: Clear Thought Process: Coherent Perception: WNL Thought Content: WNL Hallucination Type: None Delusion Type: None - Cognitive Function Orientation: A&O x 4 Level of Consciousness: Awake Cognition: WNL Estimated Intelligence: Borderline Range Insight: WNL Judgment Within Normal Limits: Yes - Medication Compliance Cooperative with Inpatient Medication Regimen: Yes - Group Participation Participates in Group Activities: Yes - Elaboration on Positive Findings Positive MSE Findings: has shallow affect Assessment - Assessment Merits Inpatient Hospitalization: For Stabilization Inpatient DSM-V Dx: F91.8 Clinical Impression: His status with few social supports and his impulsivity and limited cognitive ability made him vulnerable to express primitive suicidality to his friend as a cry for help. He denies suicidality now. With the combination of medication for impulsivity and some social connections he can be quickly stabilized. Plan - Plan Treatment Plan: Name: RAD CEJA Birthdate: 1990 [id number] Medications: Current Medications Acetaminophen (Tylenol Tab*) 650 mg PO Q4H PRN PRN Reason: for pain; or Temp >101 F Last Admin: 01/10/19 09:44 Dose: 650 mg Al Hydrox/Mg Hydrox/Simethicone (Maalox Plus*) 30 ml PO Q4H PRN PRN Reason: INDIGESTION Benzocaine (Orajel 10%*) 1 applic TOPICAL QID PRN PRN Reason: TOOTH PAIN Divalproex Sodium (Depakote Dr Tab(*)) 500 mg PO 0900,2099 [facility] Last Admin: 01/10/19 09:15 Dose: 500 mg Multivitamins (Theragran Tab*) 1 tab PO DAILY [facility] Last Admin: 01/10/19 09:16 Dose: 1 tab Nicotine (Nicotine Patch 21 Mg/24 Hr*) 1 patch TRANSDERM DAILY [facility] Last Admin: 01/10/19 09:14 Dose: 1 patch Nicotine Polacrilex (Nicotine Gum*) 4 mg PO Q2H PRN PRN Reason: CRAVING Last Admin: 01/10/19 16:06 Dose: 4 mg Pharmacy Profile Note (Nicotine Patch Removal Note*) 1 note PATCH OFF 2099 [facility] Last Admin: 01/10/19 09:17 Dose: Not Given - Discharge Plan Discharge Plan: Outpatient Follow Up Outpatient Program: [facility]
[2019-01-10] MEDS: Benzocaine (DENTAL) 10%* TOP.GEL TOPICAL PRN ×2 (21:41→22:44)
[2019-01-11] MEDS ORDERED: diPHENhydraMINE PO* 50 MG PO PRN (00:17)
[2019-01-11] MEDS ORDERED: diPHENhydraMINE PO* 50 MG ONE (00:18)
[2019-01-11] MEDS: Divalproex DR TAB(*) 500 MG PO SCH (08:38)
[2019-01-11] MEDS: Vitamin THERAPEUTIC TAB PO SCH (08:38)
[2019-01-11] MEDS: Nicotine PATCH 21 MG/24 HR* PATCH TRANSDERM SCH (08:39)
[2019-01-11] MEDS: Nicotine* 4MG (FRUIT FLAVOR) GUM PO PRN ×3 (08:40→15:36)
[2019-01-11 09:09] VITALS: BP 120/81
[2019-01-11] MEDS: Acetaminophen TAB* 325 MG PO PRN (16:27)
--- NOTE | 2019-01-17 21:44 | DS ---
DISCHARGE SUMMARY: DATE OF ADMISSION: 01/08/19 DATE OF DISCHARGE: 01/11/19 PROVIDER: Ramy Acharya MD The patient is a 28-year-old white male admitted for 3 days with chief complaint that "I was going to jump off a bridge, but my friend stopped me." Justification for admission had been that he presented with suicidal ideation and was admitted for stabilization. BRIEF HISTORY OF PRESENT ILLNESS: The patient is a 28-year-old man who had had some reasons people in his life. In January 2018, he left a halfway and was living with a girlfriend. More recently, he was going to [facility] after an admission 1 month ago at [facility] in [place] related to depression. He was supposed to take Depakote 500 mg twice a day and did have a level of 59. He was not really following up at [facility] because he had a job at [employer], but had since quit that job because he states it was too stressful. He is homeless, but has been boarded at the [facility] in [place]. He is having some stress due to losses. He had been staying with an aunt he said for a time, but states that she was too much of a disciplinarian and so he became homeless. He was feeling that he had low self-esteem and was talking about climbing and jumping off a bridge and a friend , Dolores, brought him to the police station. He had a past history of Zoloft overdose back 2 or 3 years ago and an admission at [facility] in January 2018 and admission at [facility] about a month ago. Admission laboratory data was within normal limits. HOSPITAL COURSE: The patient was admitted, but rapidly stabilized in the structured setting. He was reconnected with his housing and he decided he want to leave and it was found that he still had this housing available to him. He was reconnected with [facility] and agrees to go this time. He felt that working may have been stressful for him at that time. He wanted to leave the hospital and released. Since he had housing and was taking medication and an outpatient followup, he could not be retained against his will. His mood was bright by 01/10/19 into the 01/11/19. His medications were Depakote 500 mg twice a day and Benadryl 50 mg at bedtime as needed for insomnia. He had some individual and group therapy over the 2 days he was in the hospital and was observed on a 24/ basis and was not agitated, suicidal, violent, or psychotic. MENTAL STATUS AT DISCHARGE: He was alert and oriented in 3 spheres. He had a shallow affect, but was blandly euthymic. There is no speech or thought disorder. He had no abnormal movements present. There is no formal thought disorder. Speech was somewhat sparse commensurate with his borderline low intellectual functioning. Judgement, insight, and impulse control are fair. Short-term and long-term memory were grossly intact. IMPRESSION AT DISCHARGE: Is that the patient had been feeling overwhelmed, but was acutely stabilized in the inpatient setting. He is now back on Depakote, which can help address his impulsivity, and was given discharge appointment through open access at the [facility] in [place]. DIAGNOSES AT TIME OF DISCHARGE: Include: 1. Historical diagnosis of bipolar disorder. 2. Current diagnosis of adjustment disorder with disturbance of motions, conduct, learning disorder, and rule out mild intellectual disability. PROGNOSIS: Fair to good with treatment, but poor to fair without treatment since he has some trouble navigating roles without the aid of DSS and at least case packerfloor manager. He does have some of that support here now at least. [id number]/[facility] #: [id number] KATE
--- NOTE | 2019-01-29 19:13 | DS ---
DISCHARGE SUMMARY: DATE OF ADMISSION: 01/08/19 DATE OF DISCHARGE: 01/11/19 PROVIDER: Ramy Acharya MD ADDENDUM: Addendum information to the summary. The patient was discharged with planned followup at the [facility] in [place]. His plan was to continue to live at the [facility] in [place] where he was being placed by the [facility] since he was formerly homeless at that time. [id number]/[facility] #: [id number] KATE
== END 2019-01-11 16:42 | disposition home or self-care (01) | DRG 758 ==
LOC: ED 00:34 → BSU 14:57
PROVIDERS: ADMIT Psychiatry & Neurology Psychiatry; ATTEND Psychiatry & Neurology Psychiatry
DX: F91.8 Other conduct disorders (principal); R45.851 Suicidal ideations; F31.30 Bipolar disorder, current episode depressed, mild or moderate severity, unspecified; F81.9 Developmental disorder of scholastic skills, unspecified; F79 Unspecified intellectual disabilities; F17.210 Nicotine dependence, cigarettes, uncomplicated; Z59.0 Homelessness; Z91.048 Other nonmedicinal substance allergy status; Z81.8 Family history of other mental and behavioral disorders
CPT/HCPCS: 36415; 80053; 80061; 80307; 80320; 80329; 81003; 83036; 84443; 85025; 93005; 99222; 99231; 99238; 99284; A9270-GY; G0480

== ENCOUNTER 2019-01-24 01:48 | Emergency (ER) | payer MEDICAID ==
[2019-01-24 01:52] VITALS: BP 148/103
[2019-01-24] MEDS ORDERED: Cephalexin CAP* 500 MG PO ONE (02:02)
--- NOTE | 2019-01-24 02:15 | ED ---
Skin Complaint - HPI Summary HPI Summary: 28 year old M presenting to [facility] complains of swelling, erythema, pain of his left forearm after getting a tattoo on his left forearm several days ago. There is drainage and crusting around the tattoo site. Patient reports fever. No chills. The patient rates the pain 8/10 in severity. Symptoms aggravated by nothing. Symptoms alleviated by nothing. - History of Current Complaint Chief Complaint: EDRashSkinAbscess Stated Complaint: INFECTION PER PT Hx Obtained From: Patient Onset/Duration: Started Days Ago, Still Present Skin Exposure Onset/Duration: Days Ago Timing: Constant, Lasting Days Onset Severity: Severe Current Severity: Severe Pain Intensity: 8 Pain Scale Used: 0-10 Numeric Skin Location: Arm - left forearm Character: Swelling, Pain, Redness, Painful Aggravating Symptom(s): Nothing Alleviating Symptom(s): Nothing Associated Signs & Symptoms: Negative - chills, Fever - Additional Pertinent History Primary Care Physician: BRIDGET - Allergy/Home Medications Allergies/Adverse Reactions: Allergies Allergy/AdvReac Type Severity Reaction Status Date / Time red dye Allergy Unknown Verified 01/24/19 01:52 Reaction Details Home Medications: Home Medications NK [No Home Medications Reported] 01/24/19 [History Confirmed 01/24/19] PMH/Surg Hx/FS Hx/Imm Hx Endocrine/Hematology History: Denies: Hx Diabetes, Hx Thyroid Disease Cardiovascular History: Denies: Hx Hypertension Respiratory History: Denies: Hx Asthma, Hx Chronic Obstructive Pulmonary Disease (COPD) GI History: Denies: Hx Ulcer History: Denies: Hx Renal Disease Musculoskeletal History: Reports: Hx Orthopedic Injury - bilateral broken arm Sensory History: Denies: Hx Contacts or Glasses, Hx Hearing Aid Opthamlomology History: Denies: Hx Contacts or Glasses Neurological History: Denies: Other Neuro Impairments/Disorders Psychiatric History: Reports: Hx Anxiety, Hx Depression, Hx Inpatient Treatment , Hx Community Mental Health Tx, Hx Bipolar Disorder, Hx Suicide Attempt Denies: Hx Eating Disorder, Hx of Violent Episodes Against Others, Hx Substance Abuse - Surgical History Surgery Procedure, Year, and Place: right arm surgery. devaited septum. appendix Hx Anesthesia Reactions: No - Immunization History Date of Tetanus Vaccine: 2018 Date of Influenza Vaccine: 2019 Infectious Disease History: No Infectious Disease History: Denies: Hx Hepatitis, Hx Human Immunodeficiency Virus (HIV), History Other Infectious Disease, Traveled Outside the [place] in Last 30 Days - Family History Known Family History: Negative: Cardiac Disease, Hypertension, Diabetes Family History: Pt denies any family medical history. - Social History Alcohol Use: Daily Alcohol Amount: 6 per day Hx Substance Use: Yes Substance Use Type: Reports: None Substance Use Comment - Amount & Last Used: occasionally Hx Tobacco Use: Yes Smoking Status (MU): Light Every Day Tobacco Smoker Type: Cigarettes Amount Used/How Often: 0.5-1ppd Length of Time of Smoking/Using Tobacco: Since 13 years old Have You Smoked in the Last Year: Yes Review of Systems Positive: Fever. Negative: Chills Positive: Other - swelling, erythema, pain of his left forearm, drainage and crusting around tattoo site All Other Systems Reviewed And Are Negative: Yes Physical Exam - Summary Physical Exam Summary: Appearance: Well-appearing, Well-nourished, lying in bed comfortable Skin: Tattoo on left volar forearm shaped like a cross with some crusting overlying tattoo in parts and surrounding cellulitis which was marked with marker extending nearly to the elbow without any lymphangitic streaking Eyes: sclera anicteric, no conjunctival pallor ENT: mucous membranes moist Neck: deferred Respiratory: No signs of respiratory distress Cardiovascular: Appears well perfused, pulses are nml Abdomen: deferred Musculoskeletal: Moving all 4 extremities without obvious discomfort Neurological: Awake and alert, mentation is normal, speech is fluent and appropriate Psychiatric: affect is normal, does not appear anxious or depressed Triage Information Reviewed: Yes Vital Signs On Initial Exam: Initial Vitals Temp Pulse Resp BP Pulse Ox 100.3 F 91 16 148/103 98 01/24/19 01:49 01/24/19 01:49 01/24/19 01:49 01/24/19 01:49 01/24/19 01:49 Vital Signs Reviewed: Yes Skin: Positive: Erythema @ - left forearm Procedures - Sedation Patient Received Moderate/Deep Sedation with Procedure: No Diagnostics - Vital Signs Vital Signs Temp Pulse Resp BP Pulse Ox 01/24/19 02:03 99.1 F 01/24/19 01:49 100.3 F 91 16 148/103 98 - Laboratory Lab Statement: Any lab studies that have been ordered have been reviewed, and results considered in the medical decision making process. Course/Dx - Course Course Of Treatment: 28 year old M complains of swelling, erythema, pain of his left forearm, and drainage and crusting around tattoo site, and fever after getting a tattoo on his left forearm several days ago. Physical exam findings: Tattoo on left volar forearm shaped like a cross with some crusting overlying tattoo in parts and surrounding cellulitis which was marked with marker extending nearly to the elbow without any lymphangitic streaking. Patient will be discharged home with prescription for Cephalexin cap 500 mg PO QID #40 cap and follow up at [facility]. Patient was instructed to return to Emergency Department for new or worsening symptoms. Patient understands and is agreeable to this plan. - Diagnoses Provider Diagnoses: Cellulitis Discharge ED - Sign-Out/Discharge Documenting (check all that apply): Patient Departure - Discharge - Discharge Plan Condition: Good Disposition: HOME Prescriptions: Cephalexin CAP* [Keflex CAP*] 500 mg PO QID #40 cap Patient Education Materials: Cellulitis (ED) Referrals: [facility] [Outside] - Billing Disposition and Condition Condition: GOOD Disposition: Home - Attestation Statements Document Initiated by Laurieibe: Yes Documenting Scribe: Nickie Ga Provider For Whom Lily is Documenting (Include Credential): Lester King MD Scribe Attestation: IBruce Tiffany Liu, scribed for Lester King MD on 01/24/19 at 0513. Scribe Documentation Reviewed: Yes Provider Attestation: The documentation as recorded by the lily, Nickie Ga accurately reflects the service I personally performed and the decisions made by me, Lester King MD Status of Scribe Document: Viewed
== END 2019-01-24 02:15 | disposition home or self-care (01) ==
LOC: ED 01:48
DX: L03.114 Cellulitis of left upper limb (principal); F41.9 Anxiety disorder, unspecified; F32.9 Major depressive disorder, single episode, unspecified; F17.210 Nicotine dependence, cigarettes, uncomplicated
CPT/HCPCS: 99282; A9270-GY

== ENCOUNTER 2021-05-21 15:43 | Inpatient (IN) ==
[2021-05-21 16:51] LABS: ABS Monocytes 0.3 10^3/ul (0-0.8); ABS Neutrophils 3.6 10^3/ul (1.5-7.7); Eosinophil % 0.4 %; Hematocrit 43 % (42-52); Hemoglobin 14.5 g/dL (14.0-18.0); Lymphocyte % 20.4 %; Mean Corpuscular HGB Conc 34 g/dL (31-36); Mean Corpuscular Hemoglobin 31 pg (27-31); Mean Corpuscular Volume 91 fL (80-94); Mean Platelet Volume 8.1 fL (7.4-10.4); Platelet Count 160 10^3/uL (150-450); Red Blood Count 4.74 10^6 /uL (4.18-5.48); Red Cell Distribution Width 13 % (10-15)
[2021-05-21 17:21] LABS: ALT 92 U/L (7-52); AST 43 U/L (13-39); Acetaminophen < 15 mcg/mL; Albumin 4.3 g/dL (3.2-5.2); Albumin/Globulin Ratio 2.2 (1-3); Alcohol, S < 13 mg/dL (<13); Alkaline Phosphatase 103 U/L (35-149); Anion Gap 4 mmol/L (2-11); Blood Urea Nitrogen 11 mg/dL (6-24); CO2 Carbon Dioxide 33 mmol/L (22-32); Calcium 9.5 mg/dL (8.6-10.3); Chloride 103 mmol/L (101-111); Glucose 85 mg/dL (70-100); Lithium 0.75 mmol/L (0.6-1.2); Potassium 3.9 mmol/L (3.5-5.0); Salicylate < 2.50 mg/dL (<30); Sodium 140 mmol/L (135-145); Total Protein 6.3 g/dL (6.4-8.9); eGFR CKD-EPI 93.5 (>60)
[2021-05-21 17:33] LABS: TSH Ultra Thyroid Stim Horm 0.82 mcIU/mL (0.34-5.60)
[2021-05-21 17:36] LABS: Urine Benzodiazepine Screen None Detected (None Detect); Urine Cannabinoids Screen None Detected (None Detect); Urine Opiates Screen None Detected (None Detect)
[2021-05-22] MEDS: NS 0.9% 1000 ml BAG 1,000 ML IV SCH ×2 (00:24→07:26)
[2021-05-22 00:51] LABS: Calcium 9.1 mg/dL (8.6-10.3); Lithium 1.38 mmol/L (0.6-1.2); Potassium 3.5 mmol/L (3.5-5.0); eGFR CKD-EPI 94.6 (>60)
[2021-05-22 04:54] LABS: ABS Eosinophils 0.1 10^3/ul (0-0.6); ABS Lymphocytes 1.5 10^3/ul (1.0-4.8); ABS Monocytes 0.4 10^3/ul (0-0.8); ABS Neutrophils 3.1 10^3/ul (1.5-7.7); Eosinophil % 2.2 %; Hematocrit 41 % (42-52); Hemoglobin 14.3 g/dL (14.0-18.0); Lymphocyte % 29.2 %; Mean Corpuscular HGB Conc 35 g/dL (31-36); Mean Corpuscular Hemoglobin 31 pg (27-31); Mean Corpuscular Volume 91 fL (80-94); Platelet Count 164 10^3/uL (150-450); Red Blood Count 4.57 10^6 /uL (4.18-5.48); Red Cell Distribution Width 13 % (10-15); White Blood Count 5.2 10^3/uL (3.5-10.8)
[2021-05-22 05:27] LABS: Albumin 3.8 g/dL (3.2-5.2); Direct Bilirubin 0.1 mg/dL (0.03-0.18); Globulin 1.9 g/dL (2-4); Indirect Bilirubin 0.3 mg/dL (0.3-1.0); Total Bilirubin 0.4 mg/dL (0.2-1.0); Total Protein 5.7 g/dL (6.4-8.9)
[2021-05-22 05:29] LABS: Lithium 1.12 mmol/L (0.6-1.2); Potassium 3.8 mmol/L (3.5-5.0); eGFR CKD-EPI 93.5 (>60)
[2021-05-22 08:42] LABS: Calcium 8.8 mg/dL (8.6-10.3); eGFR CKD-EPI 94.6 (>60)
[2021-05-22] MEDS: Nicotine PATCH 14 MG/24 HR PATCH TRANSDERM SCH (09:05)
[2021-05-22] MEDS ORDERED: Al Hydrox/Mg Hydrox/Simet LIQ 30 ML UDC PO PRN (12:58)
[2021-05-22 13:57] LABS: Calcium 9.1 mg/dL (8.6-10.3); Lithium 0.81 mmol/L (0.6-1.2); Potassium 4.2 mmol/L (3.5-5.0); eGFR CKD-EPI 103.8 (>60)
[2021-05-22] MEDS: Lithium Carb ER 300 mg TAB(NF) PO SCH (21:33)
[2021-05-23] MEDS: Nicotine PATCH 14 MG/24 HR PATCH TRANSDERM SCH (08:51)
[2021-05-23 09:30] LABS: ABS Eosinophils 0.1 10^3/ul (0-0.6); ABS Lymphocytes 1.5 10^3/ul (1.0-4.8); ABS Monocytes 0.5 10^3/ul (0-0.8); ABS Neutrophils 4.7 10^3/ul (1.5-7.7); Eosinophil % 1.1 %; Hematocrit 46 % (42-52); Hemoglobin 15.8 g/dL (14.0-18.0); Lymphocyte % 22.3 %; Mean Corpuscular HGB Conc 34 g/dL (31-36); Mean Corpuscular Hemoglobin 31 pg (27-31); Mean Corpuscular Volume 91 fL (80-94); Mean Platelet Volume 8.1 fL (7.4-10.4); Nucleated Red Blood Cells % 0.1; Platelet Count 184 10^3/uL (150-450); Red Blood Count 5.11 10^6 /uL (4.18-5.48); Red Cell Distribution Width 13 % (10-15); White Blood Count 6.8 10^3/uL (3.5-10.8)
[2021-05-23 09:45] LABS: Albumin 4.1 g/dL (3.2-5.2); Albumin/Globulin Ratio 1.8 (1-3); Calcium 9.4 mg/dL (8.6-10.3); Globulin 2.3 g/dL (2-4); HDL Cholesterol 41.1 mg/dL; Lithium 0.6 mmol/L (0.6-1.2); Potassium 4.3 mmol/L (3.5-5.0); Total Bilirubin 0.5 mg/dL (0.2-1.0); Total Protein 6.4 g/dL (6.4-8.9); eGFR CKD-EPI 103.8 (>60)
[2021-05-23 13:00] LABS: Hepatitis B Surface Antigen Nonreactive (Nonreactive)
[2021-05-23 13:05] LABS: Hepatitis A Ab IgM Negative (Negative); Hepatitis B Core IgM Nonreactive (Nonreactive)
[2021-05-23 13:17] LABS: Hepatitis C Antibody Negative (Negative)
[2021-05-23] MEDS: Lithium Carb ER 300 mg TAB(NF) PO SCH (19:12)
[2021-05-24] MEDS: Nicotine PATCH 14 MG/24 HR PATCH TRANSDERM SCH ×2 (06:49→07:00)
[2021-05-24 08:09] LABS: Albumin 4.2 g/dL (3.2-5.2); Albumin/Globulin Ratio 1.8 (1-3); Calcium 9.6 mg/dL (8.6-10.3); Globulin 2.3 g/dL (2-4); Potassium 4.3 mmol/L (3.5-5.0); Total Bilirubin 0.3 mg/dL (0.2-1.0); Total Protein 6.5 g/dL (6.4-8.9); eGFR CKD-EPI 111.9 (>60)
[2021-05-24] MEDS: Nicotine GUM 4MG FRUIT FLAVOR PO PRN ×3 (12:46→20:02)
[2021-05-24] MEDS: Lithium Carb ER 300 mg TAB(NF) PO SCH (20:01)
[2021-05-25 08:37] VITALS: BP 111/69
[2021-05-25] MEDS: Nicotine GUM 4MG FRUIT FLAVOR PO PRN ×2 (09:04→11:12)
[2021-05-25] MEDS: Nicotine PATCH 14 MG/24 HR PATCH TRANSDERM SCH (09:05)
== END 2021-05-25 12:24 | disposition home or self-care (01) | DRG 885 ==
LOC: EDBD → ED 15:43 → BSU 05-22 00:59 → SUATTDRO 05-22 01:06 → EDHOLD 05-22 01:06 → MEDTELE 05-22 01:25 → BSU 05-22 14:10
PROVIDERS: ADMIT Hospitalist; ATTEND Internal Medicine